=== PATIENT | female | born 1945 | race Caucasian/White ===

== ENCOUNTER 2020-10-05 21:51 | Inpatient (IN) ==
[2020-10-05] MEDS ORDERED: RAPID SEQUENCE INDUCTION BAG ONE (22:08)
[2020-10-05] MEDS ORDERED: ROCURONIUM BROMIDE 10 MG/ML 5 ML VIAL IV STA (22:09)
[2020-10-05] MEDS ORDERED: ETOMIDATE 2 MG/ML 20 ML VIAL IV ONE (22:09)
[2020-10-05] MEDS ORDERED: fentaNYL citrate 100 MCG/2 ML VIAL IV STA (22:25)
[2020-10-05 22:27] LABS: Base Excess VBG 5.1 mEq/L; Hematocrit (blood only) 32.5 % (37-47); Hemoglobin 10.8 g/dL (12.0-16.0); Mean Corpuscular Hemoglobin 31.1 pg (25-34); Mean Corpuscular Hgb Conc 33.2 g/dL (32-36); Mean Corpuscular Volume 93.7 fL (80-100); Mean Platelet Volume 10.3 fL (7.4-10.4); Oxygen Saturation VBG 60.7 %; Platelet Count 241 K/uL (130-400); RDW Coefficient of Variation 15.2 % (11.5-14.5); RDW Standard Deviation 52.6 fL (36.4-46.3); Red Blood Count 3.47 M/uL (4.2-5.4); White Blood Count 18.48 K/uL (4.8-10.8); pH VBG 7.38 (7.36-7.41)
[2020-10-05] MEDS ORDERED: MIDAZOLAM HCL 5 MG/ML 1 ML VIAL IV STA (22:30)
[2020-10-05] MEDS ORDERED: SODIUM CHLORIDE 0.9% 1000ML 1,000 ML IV SCH (22:30)
[2020-10-05] MEDS ORDERED: CEFEPIME 2,000 MG/20 ML VIAL IV STA (22:31)
[2020-10-05] MEDS ORDERED: metroNIDAZOLE 500 MG/100 ML BAG IV STA (22:31)
[2020-10-05 22:38] LABS: iSTAT Creatinine 1.9 mg/dl (0.6-1.3); iSTAT Hemoglobin 11.6 g/dl (12.0-16.0); iSTAT Ionized Calcium 1.09 mmol/l (1.12-1.32); iSTAT Potassium 4.4 mmol/L (3.3-5.0)
[2020-10-05] MEDS ORDERED: STAT IV Infusion **Titration per Protocol STA (22:43)
[2020-10-05] MEDS ORDERED: MIDAZOLAM HCL 125 MG/250 ML BAG IV PRN (22:43)
[2020-10-05] MEDS ORDERED: MIDAZOLAM BOLUS FROM BAG IV PRN (22:43)
[2020-10-05 22:45] LABS: Appearance Urine Cloudy (Clear); Bacteria Urine Automated Negative (Negative); Bilirubin Urine Negative (Negative); Blood Urine 2+ (Negative); Cast Urine Automated 0 /lpf (0-5); Color Urine Yellow; Epithelial Cell Urine Auto 0-5 /lpf (0-5); Glucose Urine UA 1+ (Negative); Ketones Urine Negative (Negative); Leukocyte Esterase Urine 3+ (Negative); Nitrite Urine Negative (Negative); Protein Urine 1+ (Negative); Specific Gravity Urine 1.016 (1.000-1.030); Urobilinogen Urine Negative (Negative); WBC Urine Automated >30 /hpf (0-5)
[2020-10-05] MEDS ORDERED: fentaNYL citrate 100 MCG/2 ML VIAL IV PRN (22:46)
[2020-10-05 22:48] LABS: Basophils # (auto) 0.02 K/uL (0-0.2); Basophils % (auto) 0.1 %; Eosinophils # (auto) 0.03 K/uL (0-0.5); Eosinophils % (auto) 0.2 %; Immature Granulocytes # (auto) 0.21 K/uL (0.00-0.02); Immature Granulocytes % (auto) 1.1 %; Lymphocytes # (auto) 1.01 K/uL (1.2-3.4); Lymphocytes % (auto) 5.5 %; Monocytes # (auto) 0.59 K/uL (0.11-0.59); Monocytes % (auto) 3.2 %; Neutrophils # (auto) 16.62 K/uL (1.4-6.5); Neutrophils % (auto) 89.9 %; Toxic Vacuolation 1+
--- NOTE | 2020-10-05 22:53 | Emergency Department Note ---
Impression & Plan Sepsis, Supranuclear palsy, Aspiration pneumonia, Acute renal failure, Acute UTI, Acute urinary retention, Hypoglycemia ED Provider Note NAME: JUDE CAMARILLO AGE: 75 SEX: F ARRIVES VIA: Ambulance INFORMANT: Patient, ED PROVIDER(S): Simone Santana MD CHIEF COMPLAINT: Sepsis, obtundation, hypoglycemia PLAN: Disposition: Admit MEDICAL DECISION MAKING: The patient is a 75-year-old woman with a past medical history of supra nuclear palsy bedbound at baseline and nonverbal, diabetes, hypertension, hyperlipidemia who presents to the emergency department via EMS after becoming more unresponsive over the past 48 hours in the setting of having fevers, cough congestion and "gurgling", in addition to noting that she had not urinated in 48 hours. The family report that the patient is full code at this time and they had never discussed goals of care should she become critically ill such as now. They report wanting to bring her to the hospital yesterday because of the bulging in her abdomen and not urinating but they describe that she had grabbed their hand indicating that she did not want to come to the hospital. However she worsened into today and was unresponsive and decision was made to call 911. EMS found the patient to be hypoglycemic in the 40s and hypotensive ultimately fluid responsive into the upper 90s/low 100s systolic. Her blood sugar did respond after repeat dosing with D10. However her mental status did not change and she would not follow commands and would only open eyes to pain and did not appear to be protecting her airway with audible gurgling noted. I did speak at length with the patient's daughter/additional siblings and who we gathered in the room describing that the patient was critically ill and to clarify goals of care if they were aware of any. Given that they had not discussed this previously we did agree to proceed with full treatment including intubation for airway protection. This was performed without difficulty per procedure note with good placement on follow-up chest x-ray. Etomidate was used for induction and rocuronium selected for paralysis given concern for acute renal failure and possible hyperkalemia. EKG demonstrated accelerated junctional rhythm without overt acute ischemia. Chest x-ray following intubation shows acceptable placement of ET and OG tubes and is suggestive of aspiration pneumonia per my preliminary review. WBC 18K consistent with concern for sepsis. H/H similar to prior. Platelets within normal limits. VBG unremarkable with pH of 7.38. Chemistry without metabolic acidosis. However creatinine 1.8 with BUN of 75 and BUN/creatinine> 40 suggestive of component of prerenal etiology. Lactate 1.3, within normal limits. LFTs without significant abnormality. Troponin 0.056 most likely related to demand in the setting of presumed sepsis. BNP 2900, nonspecific and in setting of the patient's acute renal failure. Procalcitonin 55 suggestive of sepsis. UA is consistent with infection with WBCs and 3+ leuk esterase. COVID-19 PCR was negative. Patient was treated empirically with broad-spectrum antibiotics with cefepime, Flagyl and vancomycin on arrival. Additional IV fluid hydration for sepsis was administered. Blood pressure was stable with systolic blood pressure 90s-100s. O2 saturation initially in mid 90s on 40% FiO2 however she did later develop desaturation which improved when sitting the patient up to 30 degrees and being provided with increased PEEP to 8 and FiO2 to 60%. ABG following these changes did show development of hypercapnia with PCO2 to 81 and pH of 7.1 and so respiratory rate was increased. Of note, repeat BSG was performed and patient had recurrence of hypoglycemia down to the 50s. She was provided with 1 amp of D50 with improvement in her blood sugar to the 150s. CT of the head, chest, abdomen pelvis were performed. Per preliminary [facility] report, negative for acute intracranial process. Sinus disease was noted. CT of the chest shows bilateral groundglass and nodular infiltrates which given the patient's history suspicious for aspiration pneumonia. CT done pelvis demonst rates stool-filled rectum and perirectal stranding raising possibility of stercoral proctitis. There is nephrolithiasis however no definite ureteral stone and while there is prominence of bilateral renal collecting systems this is likely related to patient's urinary retention. Case was discussed with Dr. Hardin, [facility] hospitalist, who will evaluate the patient for admission. Case also reviewed with Dariel Melgar, ICU PAC, who will assist in patient management in the ICU. Triage Nursing notes reviewed and agree them. Additional history obtained from EMS. Prior medical records reviewed Vital Signs: reviewed and remarkable for Hypotension. Differential diagnosis: Infection, hypoglycemia, electrolyte abnormalities, overdose, toxicologic, cardiac sources, intracerebral event, neurologic, trauma, as well as other pathologies. ER treatment provided: See below. Diagnostics interpreted by me: ECG: Accelerated junctional rhythm, 73 bpm, right bundle branch block, no overt ST elevation or depression, QTC 473, QRS 112. Cardiac Monitoring: An order for continuous cardiac monitoring was placed and demonstrated Accelerated junctional rhythm, 73 bpm, no ectopy. Laboratory studies: See below Imaging studies: CXR: Bilateral interstitial infiltrates suspicious for multifocal PNA per my preliminary review. ETT and OGT with acceptable placement. [facility] Preliminary Findings Only See Final Report For Complete Findings CT HEAD: No intracranial hemorrhage or acute cortical infarct. Involutional changes and white matter low attenuation. Sinus disease. CT CHEST Without Contrast: Bilateral groundglass and nodular infiltrates. Correlate clinically regarding inflammatory/infectious etiology. Consider followup imaging to resolution. Trace right pleural fluid and right lung base calcification. Heterogeneous thyroid. CT ABDOMEN & PELVIS Without Contrast: Limited study. Stool-filled rectum with perirectal stranding, raising possibility of stercoral proctitis. Nephrolithiasis. Prominence of the bilateral renal collecting systems. No definite ureteral stone is visualized, although the distal ureters are not well seen. Arnold catheter and air in a thickened decompressed bladder. Age-indeterminate compression deformities in the spine, likely remote. Additional incidental findings. Radiologist: Paige Campbell M.D. Study ready at 00:50 and initial results transmitted at 02:18 Consultation(s): Case was discussed with Dr. Hardin, [facility] [place] hospitalist, who will evaluate the patient for admission. HPI: The patient is a 75-year-old woman with a past medical history of supra nuclear palsy bedbound at baseline and nonverbal, diabetes, hypertension, hyperlipidemia who presents to the emergency department via EMS after becoming more unresponsive over the past 48 hours in the setting of having fevers, cough congestion and "gurgling", in addition to noting that she had not urinated in 48 hours. The family report that the patient is full code at this time and they had never discussed goals of care should she become critically ill such as now. They report wanting to bring her to the hospital yesterday because of the bulging in her abdomen and not urinating but they describe that she had grabbed their hand indicating that she did not want to come to the hospital. However she worsened into today and was unresponsive and decision was made to call 911. EMS found the patient to be hypoglycemic in the 40s and hypotensive ultimately fluid responsive into the upper 90s/low 100s systolic. Her blood sugar did respond after repeat dosing with D10. However her mental status did not change and she would not follow commands and would only open eyes to pain and did not appear to be protecting her airway with audible gurgling noted. I did speak at length with the patient's daughter/additional siblings and who we gathered in the room describing that the patient was critically ill and to clarify goals of care if they were aware of any. Given that they had not discussed this previously we did agree to proceed with full treatment including intubation for airway protection. This was performed without difficulty per procedure note with good placement on follow-up chest x-ray. Etomidate was used for induction and rocuronium selected for paralysis given concern for acute renal failure and possible hyperkalemia. ROS: See above HPI for pertinent positives & negatives. A total of 10 systems reviewed and were otherwise negative. PAST MEDICAL HISTORY:See Below PAST SURGICAL HISTORY:See Below FAMILY HISTORY:See Below SOCIAL HISTORY:See Below HOME MEDICATIONS:See Below ALLERGIES:See Below VITALS:See Below PHYSICAL EXAMINATION: GENERAL: Obtunded, Acute on chronically ill/toxic appearing. HENT: Normocephalic, atraumatic. Oropharynx dry, cracked mm. EYES: Normal conjunctiva. Sclera non-icteric. NECK: Supple. No nuchal rigidity. FROM. No JVD. RESPIRATORY: Scattered rales and rhonchi. CARDIAC: Tachycardic rate, normal rhythm. Extremities cool with delayed capillary refill. Pulses equal. ABDOMEN: Suprapubic distension with mild tenderness. PEG tube site c/d/i. No rebound or guarding. No masses. RECTAL: Deferred. MUSCULOSKELETAL: Chest examination reveals no tenderness. The back is symmetrical on inspection without obvious abnormality. There is no CVA tenderness to palpation. No joint edema. LOWER EXTREMITIES: Calves are equal size bilaterally and non-tender. No edema. No discoloration. NEURO: Opens eyes to pain. Does not follow commands. Gurgling from airway noted. SKIN: Minor sacral skin breakdown. No rash or jaundice noted. ED COURSE: Procedures: Endotracheal Intubation Indication: Obtundation. Airway protection. The patient was on 100% oxygen via NRB prior to the procedure. Suction, airway equipment, RSI drugs, respiratory equipment, and appropriate personnel were prepared prior to the initiation of the procedure. A time out was taken. Induction was performed with etomidate and paralysis with Rocuronium. After observing the clinical benefit of the medications, the airway was easily visualized utilizing a Mac 3 glidscope with Grade 1 view. A 8.0 size ETT tube was placed atraumatically to 22 cm using standard technique. The cuff inflated without signs of malfunction. There were bilateral breath sounds, positive col ormetric change, no gastric sounds, a good capnography waveform, and post procedure pulse oximetry was 100%. Post intubation sedation was administered using Versed gtt. PRN fentanyl ordered for pain. There were no complications. Critical Care: I have personally spent greater than 125 minutes of critical care time in the direct management of this patient. This includes bedside care, interpretation of diagnostic studies, and testing, discussion with consultants, patient, and family members, and other required patient management activities. This 125 minutes is in excess of all separately billable procedures. Simone Santana MD Past Med/Surg History Medical History Arthritis Depression Diabetes IDDM GERD (gastroesophageal reflux disease) History of frequent headaches Hx of bronchitis nebs were for this Hyperlipidemia Hypertension Impaired verbal communication pt non verbal Kidney stones On home oxygen therapy 3 lpm continuous PSP (progressive supranuclear palsy) dx 1979' > follows with Dr. Del Angel Stroke pt's daughter denies > just has the PSP Urinary incontinence Wheelchair bound Surgical History H/O: hysterectomy History of appendectomy History of cystoscopy History of tooth extraction Hx of breast biopsy DAUGHTER UNSURE WHICH SIDE S/P percutaneous endoscopic gastrostomy (PEG) tube placement PLACED 6 MOS AGO > FEEDINGS THROUGH THAT> SOME FLUID INTAKE PO> PT DAUGHTER UNSURE FACILITY IT WAS PLACED, THINKS [facility] Family History Mother Diabetes Hypertension Social History Smoking Status: Unknown if ever smoked Second Hand Exposure: No; Hx Alcohol Use: No Hx Substance Use: No Preferred Language: Syriac Communication Ability: Unable Airline Flight Attendant Required: No Beliefs That Will Affect Care: None marital status: Current Living Situation Comment: family current occupational status: retired How many Children do You have: 3 Other Information That Helps Us Care for You: No Feels Safe at Home: Yes Assistive Devices: Oxygen - Continuous Allergies Allergies Allergy/AdvReac Type Severity Reaction Status Date / Time Penicillins AdvReac Unknown Unknown Verified 10/05/20 22:34 Home Meds Home Medications Medication Instructions Recorded Confirmed amantadine HCl 100 mg PO BID 12/10/18 10/05/20 docusate sodium 100 mg PO HS 12/10/18 10/05/20 famotidine 20 mg PO BID 12/10/18 10/05/20 glycopyrrolate 2 mg PO BID 12/10/18 10/05/20 lorazepam [Ativan] 1 mg PO BID 12/10/18 10/05/20 metoprolol tartrate 50 mg PO HS 12/10/18 10/05/20 rosuvastatin 20 mg PO PM 12/10/18 10/05/20 sertraline 200 mg PO QAM 12/10/18 10/05/20 tizanidine 4 mg PO DIRECTED PRN 12/10/18 10/05/20 olanzapine 2.5 mg tablet 2.5 mg PO QPM 06/20/20 10/05/20 pseudoephedrine-guaifenesin ER 60 1 tab PO Q12H PRN 06/20/20 10/05/20 mg-600 mg tablet,extend release 12hr clindamycin HCl 300 mg PO TID 10/05/20 10/05/20 insulin glargine [Lantus U-100 0 unit SUBCUT UD 10/05/20 10/05/20 Insulin] oxycodone-acetaminophen 1 tab PO UD PRN 10/05/20 10/05/20 Results & Data (ED) Vital Signs Vital Signs - 24 hr 10/05/20 21:56 10/05/20 22:00 10/05/20 22:04 Temperature 36.7 C Temperature Source Rectal Pulse Rate 74 72 73 Pulse Rate from SpO2 Sensor 74 73 Respiratory Rate 33 H 31 H 26 H Respiratory Effort / Characteristics Labored Blood Pressure 125/57 L 125/57 L Blood Pressure Mean 79 79 Blood Pressure Position Lying Pulse Oximetry 100 99 99 Oxygen Delivery Method Non-rebreather Non-rebreather Non-rebreather Oxygen Flow Rate 15 15 16 Fraction of Inspired Oxygen Sepsis Recent Fever Within 48 Hours Yes Sepsis New/Unexplained Change in Mental Status No Sepsis Action Taken by Nursing No Action Required End-Tidal CO2 10/05/20 22:10 10/05/20 22:15 10/05/20 22:17 Temperature Temperature Source Pulse Rate 73 72 Pulse Rate from SpO2 Sensor 72 74 Respiratory Rate Respiratory Effort / Characteristics Blood Pressure 105/49 L Blood Pressure Mean 67 Blood Pressure Position Pulse Oximetry 100 100 100 Oxygen Delivery Method Non-rebreather Non-rebreather Oxygen Flow Rate 15 15 Fraction of Inspired Oxygen Sepsis Recent Fever Within 48 Hours Sepsis New/Unexplained Change in Mental Status Sepsis Action Taken by Nursing End-Tidal CO2 10/05/20 22:25 10/05/20 22:30 10/05/20 22:34 Temperature Temperature Source Pulse Rate 67 69 71 Pulse Rate from SpO2 Sensor 67 69 70 Respiratory Rate 16 Respiratory Effort / Characteristics Blood Pressure 94/50 L 135/58 L Blood Pressure Mean 64 83 Blood Pressure Position Pulse Oximetry 100 100 100 Oxygen Delivery Method Mechanical Vent Mechanical Vent Mechanical Vent Oxygen Flow Rate Fraction of Inspired Oxygen 40 Sepsis Recent Fever Within 48 Hours Sepsis New/Unexplained Change in Mental Status Sepsis Action Taken by Nursing End-Tidal CO2 40 41 44 10/05/20 22:45 10/05/20 22:49 10/05/20 23:00 Temperature Temperature Source Pulse Rate 67 67 68 Pulse Rate from SpO2 Sensor 68 67 69 Respiratory Rate Respiratory Effort / Characteristics Blood Pressure 85/43 L 94/45 L Blood Pressure Mean 57 61 Blood Pressure Position Pulse Oximetry 98 98 98 Oxygen Delivery Method Mechanical Vent Mechanical Vent Mechanical Vent Oxygen Flow Rate Fraction of Inspired Oxygen Sepsis Recent Fever Within 48 Hours Sepsis New/Unexplained Change in Mental Status Sepsis Action Taken by Nursing End-Tidal CO2 42 43 45 10/05/20 23:15 10/05/20 23:30 10/05/20 23:45 Temperature Temperature Source Pulse Rate 68 68 68 Pulse Rate from SpO2 Sensor 69 69 Respiratory Rate 16 Respiratory Effort / Characteristics Mechanically Ventilated Blood Pressure 95/46 L 89/45 L 133/54 L Blood Pressure Mean 62 59 80 Blood Pressure Position Pulse Oximetry 99 99 98 Oxygen Delivery Method Mechanical Vent Mechanical Vent Mechanical Vent Oxygen Flow Rate Fraction of Inspired Oxygen 40 Sepsis Recent Fever Within 48 Hours Sepsis New/Unexplained Change in Mental Status Sepsis Action Taken by Nursing End-Tidal CO2 45 43 46 10/06/20 00:00 10/06/20 00:35 10/06/20 00:37 Temperature Temperature Source Pulse Rate 72 73 73 Pulse Rate from SpO2 Sensor 73 Respiratory Rate 18 Respiratory Effort / Characteristics Blood Pressure 145/56 H 115/47 L Blood Pressure Mean 85 69 Blood Pressure Position Pulse Oximetry 96 98 Oxygen Delivery Method Mechanical Vent Oxygen Flow Rate Fraction of Inspired Oxygen 40 40 Sepsis Recent Fever Within 48 Hours Sepsis New/Unexplained Change in Mental Status Sepsis Action Taken by Nursing End-Tidal CO2 52 54 53 10/06/20 00:39 10/06/20 00:45 10/06/20 01:00 Temperature Temperature Source Pulse Rate 72 71 Pulse Rate from SpO2 Sensor 72 71 Respiratory Rate Respiratory Effort / Characteristics Mechanically Ventilated Blood Pressure 99/48 L 108/47 L Blood Pressure Mean 65 67 Blood Pressure Position Pulse Oximetry 96 98 95 Oxygen Delivery Method Mechanical Vent Mechanical Vent Mechanical Vent Oxygen Flow Rate Fraction of Inspired Oxygen 40 40 40 Sepsis Recent Fever Within 48 Hours Sepsis New/Unexplained Change in Mental Status Sepsis Action Taken by Nursing End-Tidal CO2 51 50 10/06/20 01:15 10/06/20 01:30 10/06/20 01:45 Temperature Temperature Source Pulse Rate 71 71 71 Pulse Rate from SpO2 Sensor 71 71 71 Respiratory Rate Respiratory Effort / Characteristics Blood Pressure 103/45 L 94/42 L 109/47 L Blood Pressure Mean 64 59 67 Blood Pressure Position Pulse Oximetry 94 93 93 Oxygen Delivery Method Mechanical Vent Mechanical Vent Mechanical Vent Oxygen Flow Rate Fraction of Inspired Oxygen 40 40 40 Sepsis Recent Fever Within 48 Hours Sepsis New/Unexplained Change in Mental Status Sepsis Action Taken by Nursing End-Tidal CO2 48 50 51 10/06/20 02:00 10/06/20 02:05 10/06/20 02:10 Temperature Temperature Source Pulse Rate 72 Pulse Rate from SpO2 Sensor 72 Respiratory Rate Respiratory Effort / Characteristics Mechanically Ventilated Blood Pressure 113/47 L Blood Pressure Mean 69 Blood Pressure Position Pulse Oximetry 87 L 92 Oxygen Delivery Method Mechanical Vent Mechanical Vent Oxygen Flow Rate Fraction of Inspired Oxygen 40 50 Sepsis Recent Fever Within 48 Hours Sepsis New/Unexplained Change in Mental Status Sepsis Action Taken by Nursing End-Tidal CO2 48 10/06/20 02:15 10/06/20 02:26 10/06/20 02:30 Temperature Temperature Source Pulse Rate 73 75 Pulse Rate from SpO2 Sensor 74 75 Respiratory Rate 24 Respiratory Effort / Characteristics Blood Pressure 104/50 L 96/51 L Blood Pressure Mean 68 66 Blood Pressure Position Pulse Oximetry 91 95 Oxygen Delivery Method Mechanical Vent Oxygen Flow Rate Fraction of Inspired Oxygen 50 50 Sepsis Recent Fever Within 48 Hours Sepsis New/Unexplained Change in Mental Status Sepsis Action Taken by Nursing End-Tidal CO2 43 36 10/06/20 02:45 10/06/20 03:00 10/06/20 03:15 Temperature Temperature Source Pulse Rate 76 75 76 Pulse Rate from SpO2 Sensor 76 75 74 Respiratory Rate Respiratory Effort / Characteristics Blood Pressure 99/53 L 100/52 L 99/51 L Blood Pressure Mean 68 68 67 Blood Pressure Position Pulse Oximetry 92 92 91 Oxygen Delivery Method Mechanical Vent Mechanical Vent Mechanical Vent Oxygen Flow Rate Fraction of Inspired Oxygen 50 50 50 Sepsis Recent Fever Within 48 Hours Sepsis New/Unexplained Change in Mental Status Sepsis Action Taken by Nursing End-Tidal CO2 41 36 37 10/06/20 03:30 10/06/20 03:35 10/06/20 03:45 Temperature Temperature Source Pulse Rate 75 74 Pulse Rate from SpO2 Sensor 75 74 Respiratory Rate Respiratory Effort / Characteristics Mechanically Ventilated Blood Pressure 101/49 L 95/52 L Blood Pressure Mean 66 66 Blood Pressure Position Pulse Oximetry 93 93 94 Oxygen Delivery Method Mechanical Vent Mechanical Vent Mechanical Vent Oxygen Flow Rate Fraction of Inspired Oxygen 50 50 50 Sepsis Recent Fever Within 48 Hours Sepsis New/Unexplained Change in Mental Status Sepsis Action Taken by Nursing End-Tidal CO2 34 32 10/06/20 04:00 10/06/20 04:15 10/06/20 05:10 Temperature Temperature Source Pulse Rate 74 73 70 Pulse Rate from SpO2 Sensor 74 73 Respiratory Rate 27 H Respiratory Effort / Characteristics Blood Pressure 93/51 L 87/54 L Blood Pressure Mean 65 65 Blood Pressure Position Pulse Oximetry 95 95 88 L Oxygen Delivery Method Mechanical Vent Mechanical Vent Oxygen Flow Rate Fraction of Inspired Oxygen 50 50 100 Sepsis Recent Fever Within 48 Hours Sepsis New/Unexplained Change in Mental Status Sepsis Action Taken by Nursing End-Tidal CO2 34 33 24 Laboratory Data Attestation: I reviewed the patient's lab results. Result diagrams: 10/05/20 22:19 10/05/20 22:19 Lab Results 10/05/20 10/05/20 10/05/20 Range/Units 22:03 22:16 22:16 WBC (4.8-10.8) K/uL RBC (4.2-5.4) M/uL Hgb (12.0-16.0) g/dL POC Hgb (12.0-16.0) g/dl Hct (37-47) % POC Hct (37-47) % MCV (80-100) fL MCH (25-34) pg MCHC (32-36) g/dL RDW Std Deviation (36.4-46.3) fL RDW Coeff of Arron (11.5-14.5) % Plt Count (130-400) K/uL MPV (7.4-10.4) fL Immature Gran % (Auto) % Neut % (Auto) % Lymph % (Auto) % Hayes % (Auto) % Eos % (Auto) % Baso % (Auto) % Neut # (Auto) (1.4-6.5) K/uL Lymph # (Auto) (1.2-3.4) K/uL Hayes # (Auto) (0.11-0.59) K/uL Eos # (Auto) (0-0.5) K/uL Baso # (Auto) (0-0.2) K/uL Immature Gran # (Auto) (0.00-0.02) K/uL Toxic Vacuolation PT INR APTT PTT Ratio POC pH (7.35-7.45) POC pCO2 (35-46) mmHg POC pO2 (80-95) mmHg POC HCO3 (19-24) lorie/L POC Base Excess (-9-1.8) lorie/L POC ABG O2 Sat (90-95) % VBG pH (7.36-7.41) VBG pCO2 (38-50) mmHg VBG pO2 mmHg VBG HCO3 mmol/L VBG O2 Saturation % VBG Base Excess mEq/L Barometric Pressure mm/Hg POC Sodium (135-144) mmol/L Sodium (136-145) mmol/L POC Potassium (3.3-5.0) mmol/L Potassium (3.5-5.1) mmol/L POC Chloride (101-112) mmol/L Chloride (98-107) mmol/L Carbon Dioxide (21-32) mmol/L POC Total CO2 (24-31) mmol/L Anion Gap (3-11) POC Anion Gap (16-25) mmol/L POC BUN (7-18) mg/dl BUN (7-18) mg/dl Creatinine (0.6-1.2) mg/dl POC Creatinine (0.6-1.3) mg/dl Est Cr Clr Drug Dosing ml/min Est GFR ( Amer) ml/min Est GFR (Non-Af Amer) ml/min BUN/Creatinine Ratio (10-20) Glucose (70-99) mg/dl POC Glucose 124 H (70-99) mg/dl POC Glucose (other) (70-99) mg/dl Lactate (0.4-2.0) mmol/L Calcium (8.5-10.1) mg/dl POC Ioniz Calcium Quyen (1.12-1.32) mmol/l Phosphorus (2.5-4.9) mg/dl Magnesium (1.8-2.4) mg/dl Total Bilirubin (0.2-1) mg/dl Direct Bilirubin (0-0.2) mg/dl AST (15-37) U/L ALT (12-78) U/L Alkaline Phosphatase (45-117) U/L Total Creatine Kinase (26-192) U/L Troponin I (0-0.045) ng/ml NT-Pro-B Natriuret Pep (0-900) pg/ml Total Protein (6.4-8.2) gm/dl Albumin (3.4-5.0) gm/dl Globulin (2.5-4.0) gm/dl Albumin/Globulin Ratio (0.9-2) Lipase (73-393) U/L Procalcitonin (0-0.5) ng/ml TSH (0.300-4.500) uIu/ml Free T4 (0.8-1.6) ng/dl Urine Color Urine Appearance (Clear) Urine pH (4.5-7.5) Ur Specific [place] (1.000-1.030) Urine Protein (Negative) Urine Glucose (UA) (Negative) Urine Ketones (Negative) Urine Blood (Negative) Urine Nitrite (Negative) Urine Bilirubin (Negative) Urine Urobilinogen (Negative) Ur Leukocyte Esterase (Negative) Urine WBC (Auto) (0-5) /hpf Urine RBC (Auto) (0-4) /hpf U Hyaline Cast (Auto) (0-5) /lpf U Epithel Cells (Auto) (0-5) /lpf Urine Bacteria (Auto) (Negative) Urine Yeast (None Prsent) COVID-19 Eval Order Covid19 at [facility] SARS-CoV-2 (PCR) NEGATIVE (Negative) 10/05/20 10/05/20 10/05/20 Range/Units 22:19 22:19 22:19 WBC 18.48 H (4.8-10.8) K/uL RBC 3.47 L (4.2-5.4) M/uL Hgb 10.8 L (12.0-16.0) g/dL POC Hgb (12.0-16.0) g/dl Hct 32.5 L (37-47) % POC Hct (37-47) % MCV 93.7 (80-100) fL MCH 31.1 (25-34) pg MCHC 33.2 (32-36) g/dL RDW Std Deviation 52.6 H (36.4-46.3) fL RDW Coeff of Arron 15.2 H (11.5-14.5) % Plt Count 241 (130-400) K/uL MPV 10.3 (7.4-10.4) fL Immature Gran % (Auto) 1.1 % Neut % (Auto) 89.9 % Lymph % (Auto) 5.5 % Hayes % (Auto) 3.2 % Eos % (Auto) 0.2 % Baso % (Auto) 0.1 % Neut # (Auto) 16.62 H (1.4-6.5) K/uL Lymph # (Auto) 1.01 L (1.2-3.4) K/uL Hayes # (Auto) 0.59 (0.11-0.59) K/uL Eos # (Auto) 0.03 (0-0.5) K/uL Baso # (Auto) 0.02 (0-0.2) K/uL Immature Gran # (Auto) 0.21 H (0.00-0.02) K/uL Toxic Vacuolation 1+ PT INR APTT PTT Ratio POC pH (7.35-7.45) POC pCO2 (35-46) mmHg POC pO2 (80-95) mmHg POC HCO3 (19-24) lorie/L POC Base Excess (-9-1.8) lorie/L POC ABG O2 Sat (90-95) % VBG pH (7.36-7.41) VBG pCO2 (38-50) mmHg VBG pO2 mmHg VBG HCO3 mmol/L VBG O2 Saturation % VBG Base Excess mEq/L Barometric Pressure mm/Hg POC Sodium (135-144) mmol/L Sodium 135 L (136-145) mmol/L POC Potassium (3.3-5.0) mmol/L Potassium 4.2 (3.5-5.1) mmol/L POC Chloride (101-112) mmol/L Chloride 100 (98-107) mmol/L Carbon Dioxide 34 H (21-32) mmol/L POC Total CO2 (24-31) mmol/L Anion Gap 2.0 L (3-11) POC Anion Gap (16-25) mmol/L POC BUN (7-18) mg/dl BUN 75 H (7-18) mg/dl Creatinine 1.82 H (0.6-1.2) mg/dl POC Creatinine (0.6-1.3) mg/dl Est Cr Clr Drug Dosing 22.4 ml/min Est GFR ( Amer) 30.9 ml/min Est GFR (Non-Af Amer) 26.7 ml/min BUN/Creatinine Ratio 41.2 H (10-20) Glucose 106 H (70-99) mg/dl POC Glucose (70-99) mg/dl POC Glucose (other) (70-99) mg/dl Lactate (0.4-2.0) mmol/L Calcium 8.7 (8.5-10.1) mg/dl POC Ioniz Calcium Quyen (1.12-1.32) mmol/l Phosphorus 1.9 L (2.5-4.9) mg/dl Magnesium 2.7 H (1.8-2.4) mg/dl Total Bilirubin 0.4 (0.2-1) mg/dl Direct Bilirubin 0.2 (0-0.2) mg/dl AST 42 H (15-37) U/L ALT 34 (12-78) U/L Alkaline Phosphatase 77 (45-117) U/L Total Creatine Kinase 236 H (26-192) U/L Troponin I 0.056 H* (0-0.045) ng/ml NT-Pro-B Natriuret Pep 2902 H (0-900) pg/ml Total Protein 7.0 (6.4-8.2) gm/dl Albumin 2.5 L (3.4-5.0) gm/dl Globulin 4.5 H (2.5-4.0) gm/dl Albumin/Globulin Ratio 0.6 L (0.9-2) Lipase 51 L (73-393) U/L Procalcitonin 55.17 H (0-0.5) ng/ml TSH 5.310 H (0.300-4.500) uIu/ml Free T4 1.15 (0.8-1.6) ng/dl Urine Color Urine Appearance (Clear) Urine pH (4.5-7.5) Ur Specific [place] (1.000-1.030) Urine Protein (Negative) Urine Glucose (UA) (Negative) Urine Ketones (Negative) Urine Blood (Negative) Urine Nitrite (Negative) Urine Bilirubin (Negative) Urine Urobilinogen (Negative) Ur Leukocyte Esterase (Negative) Urine WBC (Auto) (0-5) /hpf Urine RBC (Auto) (0-4) /hpf U Hyaline Cast (Auto) (0-5) /lpf U Epithel Cells (Auto) (0-5) /lpf Urine Bacteria (Auto) (Negative) Urine Yeast (None Prsent) COVID-19 Eval Order SARS-CoV-2 (PCR) (Negative) 10/05/20 10/05/20 10/05/20 Range/Units 22:19 22:19 22:26 WBC (4.8-10.8) K/uL RBC (4.2-5.4) M/uL Hgb (12.0-16.0) g/dL POC Hgb 11.6 L (12.0-16.0) g/dl Hct (37-47) % POC Hct 34 L (37-47) % MCV (80-100) fL MCH (25-34) pg MCHC (32-36) g/dL RDW Std Deviation (36.4-46.3) fL RDW Coeff of Arron (11.5-14.5) % Plt Count (130-400) K/uL MPV (7.4-10.4) fL Immature Gran % (Auto) % Neut % (Auto) % Lymph % (Auto) % Hayes % (Auto) % Eos % (Auto) % Baso % (Auto) % Neut # (Auto) (1.4-6.5) K/uL Lymph # (Auto) (1.2-3.4) K/uL Hayes # (Auto) (0.11-0.59) K/uL Eos # (Auto) (0-0.5) K/uL Baso # (Auto) (0-0.2) K/uL Immature Gran # (Auto) (0.00-0.02) K/uL Toxic Vacuolation PT Cancelled INR Cancelled APTT Cancelled PTT Ratio Cancelled POC pH (7.35-7.45) POC pCO2 (35-46) mmHg POC pO2 (80-95) mmHg POC HCO3 (19-24) lorie/L POC Base Excess (-9-1.8) lorie/L POC ABG O2 Sat (90-95) % VBG pH 7.38 (7.36-7.41) VBG pCO2 55 H (38-50) mmHg VBG pO2 32 mmHg VBG HCO3 31 mmol/L VBG O2 Saturation 60.7 % VBG Base Excess 5.1 mEq/L Barometric Pressure 735.7 mm/Hg POC Sodium 137 (135-144) mmol/L Sodium (136-145) mmol/L POC Potassium 4.4 (3.3-5.0) mmol/L Potassium (3.5-5.1) mmol/L POC Chloride 95 L (101-112) mmol/L Chloride (98-107) mmol/L Carbon Dioxide (21-32) mmol/L POC Total CO2 31 (24-31) mmol/L Anion Gap (3-11) POC Anion Gap 17.0 (16-25) mmol/L POC BUN 78 H (7-18) mg/dl BUN (7-18) mg/dl Creatinine (0.6-1.2) mg/dl POC Creatinine 1.9 H (0.6-1.3) mg/dl Est Cr Clr Drug Dosing ml/min Est GFR ( Amer) ml/min Est GFR (Non-Af Amer) ml/min BUN/Creatinine Ratio (10-20) Glucose (70-99) mg/dl POC Glucose (70-99) mg/dl POC Glucose (other) 106 H (70-99) mg/dl Lactate (0.4-2.0) mmol/L Calcium (8.5-10.1) mg/dl POC Ioniz Calcium Quyen 1.09 L (1.12-1.32) mmol/l Phosphorus (2.5-4.9) mg/dl Magnesium (1.8-2.4) mg/dl Total Bilirubin (0.2-1) mg/dl Direct Bilirubin (0-0.2) mg/dl AST (15-37) U/L ALT (12-78) U/L Alkaline Phosphatase (45-117) U/L Total Creatine Kinase (26-192) U/L Troponin I (0-0.045) ng/ml NT-Pro-B Natriuret Pep (0-900) pg/ml Total Protein (6.4-8.2) gm/dl Albumin (3.4-5.0) gm/dl Globulin (2.5-4.0) gm/dl Albumin/Globulin Ratio (0.9-2) Lipase (73-393) U/L Procalcitonin (0-0.5) ng/ml TSH (0.300-4.500) uIu/ml Free T4 (0.8-1.6) ng/dl Urine Color Urine Appearance (Clear) Urine pH (4.5-7.5) Ur Specific [place] (1.000-1.030) Urine Protein (Negative) Urine Glucose (UA) (Negative) Urine Ketones (Negative) Urine Blood (Negative) Urine Nitrite (Negative) Urine Bilirubin (Negative) Urine Urobilinogen (Negative) Ur Leukocyte Esterase (Negative) Urine WBC (Auto) (0-5) /hpf Urine RBC (Auto) (0-4) /hpf U Hyaline Cast (Auto) (0-5) /lpf U Epithel Cells (Auto) (0-5) /lpf Urine Bacteria (Auto) (Negative) Urine Yeast (None Prsent) COVID-19 Eval Order SARS-CoV-2 (PCR) (Negative) 10/05/20 10/05/20 10/05/20 Range/Units 22:35 22:47 22:50 WBC (4.8-10.8) K/uL RBC (4.2-5.4) M/uL Hgb (12.0-16.0) g/dL POC Hgb (12.0-16.0) g/dl Hct (37-47) % POC Hct (37-47) % MCV (80-100) fL MCH (25-34) pg MCHC (32-36) g/dL RDW Std Deviation (36.4-46.3) fL RDW Coeff of Arron (11.5-14.5) % Plt Count (130-400) K/uL MPV (7.4-10.4) fL Immature Gran % (Auto) % Neut % (Auto) % Lymph % (Auto) % Hayes % (Auto) % Eos % (Auto) % Baso % (Auto) % Neut # (Auto) (1.4-6.5) K/uL Lymph # (Auto) (1.2-3.4) K/uL Hayes # (Auto) (0.11-0.59) K/uL Eos # (Auto) (0-0.5) K/uL Baso # (Auto) (0-0.2) K/uL Immature Gran # (Auto) (0.00-0.02) K/uL Toxic Vacuolation PT 11.9 INR 1.2 H APTT 24.9 PTT Ratio 0.9 POC pH (7.35-7.45) POC pCO2 (35-46) mmHg POC pO2 (80-95) mmHg POC HCO3 (19-24) lorie/L POC Base Excess (-9-1.8) lorie/L POC ABG O2 Sat (90-95) % VBG pH (7.36-7.41) VBG pCO2 (38-50) mmHg VBG pO2 mmHg VBG HCO3 mmol/L VBG O2 Saturation % VBG Base Excess mEq/L Barometric Pressure mm/Hg POC Sodium (135-144) mmol/L Sodium (136-145) mmol/L POC Potassium (3.3-5.0) mmol/L Potassium (3.5-5.1) mmol/L POC Chloride (101-112) mmol/L Chloride (98-107) mmol/L Carbon Dioxide (21-32) mmol/L POC Total CO2 (24-31) mmol/L Anion Gap (3-11) POC Anion Gap (16-25) mmol/L POC BUN (7-18) mg/dl BUN (7-18) mg/dl Creatinine (0.6-1.2) mg/dl POC Creatinine (0.6-1.3) mg/dl Est Cr Clr Drug Dosing ml/min Est GFR ( Amer) ml/min Est GFR (Non-Af Amer) ml/min BUN/Creatinine Ratio (10-20) Glucose (70-99) mg/dl POC Glucose (70-99) mg/dl POC Glucose (other) (70-99) mg/dl Lactate 1.3 (0.4-2.0) mmol/L Calcium (8.5-10.1) mg/dl POC Ioniz Calcium Quyen (1.12-1.32) mmol/l Phosphorus (2.5-4.9) mg/dl Magnesium (1.8-2.4) mg/dl Total Bilirubin (0.2-1) mg/dl Direct Bilirubin (0-0.2) mg/dl AST (15-37) U/L ALT (12-78) U/L Alkaline Phosphatase (45-117) U/L Total Creatine Kinase (26-192) U/L Troponin I (0-0.045) ng/ml NT-Pro-B Natriuret Pep (0-900) pg/ml Total Protein (6.4-8.2) gm/dl Albumin (3.4-5.0) gm/dl Globulin (2.5-4.0) gm/dl Albumin/Globulin Ratio (0.9-2) Lipase (73-393) U/L Procalcitonin (0-0.5) ng/ml TSH (0.300-4.500) uIu/ml Free T4 (0.8-1.6) ng/dl Urine Color Yellow Urine Appearance Cloudy A (Clear) Urine pH 6.0 (4.5-7.5) Ur Specific [place] 1.016 (1.000-1.030) Urine Protein 1+ H (Negative) Urine Glucose (UA) 1+ H (Negative) Urine Ketones Negative (Negative) Urine Blood 2+ H (Negative) Urine Nitrite Negative (Negative) Urine Bilirubin Negative (Negative) Urine Urobilinogen Negative (Negative) Ur Leukocyte Esterase 3+ H (Negative) Urine WBC (Auto) >30 H (0-5) /hpf Urine RBC (Auto) 10-30 H (0-4) /hpf U Hyaline Cast (Auto) 0 (0-5) /lpf U Epithel Cells (Auto) 0-5 (0-5) /lpf Urine Bacteria (Auto) Negative (Negative) Urine Yeast Budding A (None Prsent) COVID-19 Eval Order SARS-CoV-2 (PCR) (Negative) 10/06/20 10/06/20 10/06/20 Range/Units 01:21 01:23 02:01 WBC (4.8-10.8) K/uL RBC (4.2-5.4) M/uL Hgb (12.0-16.0) g/dL POC Hgb (12.0-16.0) g/dl Hct (37-47) % POC Hct (37-47) % MCV (80-100) fL MCH (25-34) pg MCHC (32-36) g/dL RDW Std Deviation (36.4-46.3) fL RDW Coeff of Arron (11.5-14.5) % Plt Count (130-400) K/uL MPV (7.4-10.4) fL Immature Gran % (Auto) % Neut % (Auto) % Lymph % (Auto) % [place] % (Auto) % Eos % (Auto) % Baso % (Auto) % Neut # (Auto) (1.4-6.5) K/uL Lymph # (Auto) (1.2-3.4) K/uL [place] # (Auto) (0.11-0.59) K/uL Eos # (Auto) (0-0.5) K/uL Baso # (Auto) (0-0.2) K/uL Immature Gran # (Auto) (0.00-0.02) K/uL Toxic Vacuolation PT INR APTT PTT Ratio POC pH (7.35-7.45) POC pCO2 (35-46) mmHg POC pO2 (80-95) mmHg POC HCO3 (19-24) lorie/L POC Base Excess (-9-1.8) lorie/L POC ABG O2 Sat (90-95) % VBG pH (7.36-7.41) VBG pCO2 (38-50) mmHg VBG pO2 mmHg VBG HCO3 mmol/L VBG O2 Saturation % VBG Base Excess mEq/L Barometric Pressure mm/Hg POC Sodium (135-144) mmol/L Sodium (136-145) mmol/L POC Potassium (3.3-5.0) mmol/L Potassium (3.5-5.1) mmol/L POC Chloride (101-112) mmol/L Chloride (98-107) mmol/L Carbon Dioxide (21-32) mmol/L POC Total CO2 (24-31) mmol/L Anion Gap (3-11) POC Anion Gap (16-25) mmol/L POC BUN (7-18) mg/dl BUN (7-18) mg/dl Creatinine (0.6-1.2) mg/dl POC Creatinine (0.6-1.3) mg/dl Est Cr Clr Drug Dosing ml/min Est GFR ( Amer) ml/min Est GFR (Non-Af Amer) ml/min BUN/Creatinine Ratio (10-20) Glucose (70-99) mg/dl POC Glucose 65 L* 55 L* 151 H (70-99) mg/dl POC Glucose (other) (70-99) mg/dl Lactate (0.4-2.0) mmol/L Calcium (8.5-10.1) mg/dl POC Ioniz Calcium Quyen (1.12-1.32) mmol/l Phosphorus (2.5-4.9) mg/dl Magnesium (1.8-2.4) mg/dl Total Bilirubin (0.2-1) mg/dl Direct Bilirubin (0-0.2) mg/dl AST (15-37) U/L ALT (12-78) U/L Alkaline Phosphatase (45-117) U/L Total Creatine Kinase (26-192) U/L Troponin I (0-0.045) ng/ml NT-Pro-B Natriuret Pep (0-900) pg/ml Total Protein (6.4-8.2) gm/dl Albumin (3.4-5.0) gm/dl Globulin (2.5-4.0) gm/dl Albumin/Globulin Ratio (0.9-2) Lipase (73-393) U/L Procalcitonin (0-0.5) ng/ml TSH (0.300-4.500) uIu/ml Free T4 (0.8-1.6) ng/dl Urine Color Urine Appearance (Clear) Urine pH (4.5-7.5) Ur Specific [place] (1.000-1.030) Urine Protein (Negative) Urine Glucose (UA) (Negative) Urine Ketones (Negative) Urine Blood (Negative) Urine Nitrite (Negative) Urine Bilirubin (Negative) Urine Urobilinogen (Negative) Ur Leukocyte Esterase (Negative) Urine WBC (Auto) (0-5) /hpf Urine RBC (Auto) (0-4) /hpf U Hyaline Cast (Auto) (0-5) /lpf U Epithel Cells (Auto) (0-5) /lpf Urine Bacteria (Auto) (Negative) Urine Yeast (None Prsent) COVID-19 Eval Order SARS-CoV-2 (PCR) (Negative) 10/06/20 10/06/20 Range/Units 02:19 03:32 WBC (4.8-10.8) K/uL RBC (4.2-5.4) M/uL Hgb (12.0-16.0) g/dL POC Hgb 10.2 L (12.0-16.0) g/dl Hct (37-47) % POC Hct 30 L (37-47) % MCV (80-100) fL MCH (25-34) pg MCHC (32-36) g/dL RDW Std Deviation (36.4-46.3) fL RDW Coeff of Arron (11.5-14.5) % Plt Count (130-400) K/uL MPV (7.4-10.4) fL Immature Gran % (Auto) % Neut % (Auto) % Lymph % (Auto) % [place] % (Auto) % Eos % (Auto) % Baso % (Auto) % Neut # (Auto) (1.4-6.5) K/uL Lymph # (Auto) (1.2-3.4) K/uL [place] # (Auto) (0.11-0.59) K/uL Eos # (Auto) (0-0.5) K/uL Baso # (Auto) (0-0.2) K/uL Immature Gran # (Auto) (0.00-0.02) K/uL Toxic Vacuolation PT INR APTT PTT Ratio POC pH 7.17 L* (7.35-7.45) POC pCO2 81 H (35-46) mmHg POC pO2 69 L (80-95) mmHg POC HCO3 29 H (19-24) lorie/L POC Base Excess 1.0 (-9-1.8) lorie/L POC ABG O2 Sat 87.0 L (90-95) % VBG pH (7.36-7.41) VBG pCO2 (38-50) mmHg VBG pO2 mmHg VBG HCO3 mmol/L VBG O2 Saturation % VBG Base Excess mEq/L Barometric Pressure mm/Hg POC Sodium 142 (135-144) mmol/L Sodium (136-145) mmol/L POC Potassium 4.0 (3.3-5.0) mmol/L Potassium (3.5-5.1) mmol/L POC Chloride (101-112) mmol/L Chloride (98-107) mmol/L Carbon Dioxide (21-32) mmol/L POC Total CO2 32 H (24-31) mmol/L Anion Gap (3-11) POC Anion Gap (16-25) mmol/L POC BUN (7-18) mg/dl BUN (7-18) mg/dl Creatinine (0.6-1.2) mg/dl POC Creatinine (0.6-1.3) mg/dl Est Cr Clr Drug Dosing ml/min Est GFR ( Amer) ml/min Est GFR (Non-Af Amer) ml/min BUN/Creatinine Ratio (10-20) Glucose (70-99) mg/dl POC Glucose 120 H (70-99) mg/dl POC Glucose (other) (70-99) mg/dl Lactate (0.4-2.0) mmol/L Calcium (8.5-10.1) mg/dl POC Ioniz Calcium Quyen (1.12-1.32) mmol/l Phosphorus (2.5-4.9) mg/dl Magnesium (1.8-2.4) mg/dl Total Bilirubin (0.2-1) mg/dl Direct Bilirubin (0-0.2) mg/dl AST (15-37) U/L ALT (12-78) U/L Alkaline Phosphatase (45-117) U/L Total Creatine Kinase (26-192) U/L Troponin I (0-0.045) ng/ml NT-Pro-B Natriuret Pep (0-900) pg/ml Total Protein (6.4-8.2) gm/dl Albumin (3.4-5.0) gm/dl Globulin (2.5-4.0) gm/dl Albumin/Globulin Ratio (0.9-2) Lipase (73-393) U/L Procalcitonin (0-0.5) ng/ml TSH (0.300-4.500) uIu/ml Free T4 (0.8-1.6) ng/dl Urine Color Urine Appearance (Clear) Urine pH (4.5-7.5) Ur Specific [place] (1.000-1.030) Urine Protein (Negative) Urine Glucose (UA) (Negative) Urine Ketones (Negative) Urine Blood (Negative) Urine Nitrite (Negative) Urine Bilirubin (Negative) Urine Urobilinogen (Negative) Ur Leukocyte Esterase (Negative) Urine WBC (Auto) (0-5) /hpf Urine RBC (Auto) (0-4) /hpf U Hyaline Cast (Auto) (0-5) /lpf U Epithel Cells (Auto) (0-5) /lpf Urine Bacteria (Auto) (Negative) Urine Yeast (None Prsent) COVID-19 Eval Order SARS-CoV-2 (PCR) (Negative) Administered Medications Midazolam HCl (Versed) 125 mg in 250 mls @ 2 mls/hr IV .Q96H PRN; Protocol PRN Reason: Sedation Stop: 11/04/20 22:42 Last Titration: 10/06/20 03:48 Dose: 2 mg/hr, 4 mls/hr Documented by: [id number] Cosigned by: [id number] Titration: 10/06/20 03:04 Dose: 1.5 mg/hr, 3 mls/hr Documented by: [id number] Cosigned by: [id number] Admin: 10/05/20 23:28 Dose: 1 mg/hr, 2 mls/hr Documented by: [id number] Cosigned by: [id number] Discontinued Medications Dextrose (Dextrose 50% 50 Ml Syringe) Confirm Administered Dose 50 ml IV .STK- MED ONE Stop: 10/06/20 01:27 Last Admin: 10/06/20 01:32 Dose: Not Given Documented by: [id number] Dextrose (Dextrose 50% 50 Ml Syringe) 50 ml IV NOW ONE Stop: 10/06/20 01:28 Last Admin: 10/06/20 01:31 Dose: 50 ml Documented by: [id number] Etomidate (Etomidate 2 Mg/Ml 20 Ml Vial) 15 mg IV NOW ONE Stop: 10/05/20 22:10 Last Admin: 10/05/20 23:39 Dose: Not Given Documented by: [id number] Fentanyl Citrate (Fentanyl Citrate 100 Mcg/2 Ml Vial) 50 mcg IV NOW STA Stop: 10/05/20 22:26 Last Admin: 10/05/20 23:39 Dose: Not Given Documented by: [id number] Sodium Chloride (Nss 1000ml) 1,000 mls @ 999 mls/hr IV .Q1H1M DEBORAH Stop: 10/05/20 23:26 Last Infusion: 10/06/20 00:28 Dose: 0 mls/hr Documented by: [id number] Admin: 10/05/20 23:28 Dose: 999 mls/hr Documented by: [id number] Sodium Chloride (Nss 1000ml) 800 mls @ 999 mls/hr IV .Q49M [facility] [place] Stop: 10/06/20 00:14 Last Infusion: 10/06/20 00:17 Dose: 0 mls/hr Documented by: [id number] Admin: 10/05/20 23:28 Dose: 999 mls/hr Documented by: [id number] Cefepime HCl (Maxipime) 2,000 mg in 20 mls @ 5 mls/min IV NOW STA; Protocol Stop: 10/05/20 22:34 Last Admin: 10/05/20 23:27 Dose: 5 mls/min Documented by: [id number] Metronidazole (Flagyl) 500 mg in 100 mls @ 100 mls/hr IV NOW STA Stop: 10/05/20 23:30 Last Infusion: 10/06/20 00:28 Dose: 0 mls/hr Documented by: [id number] Admin: 10/05/20 23:28 Dose: 100 mls/hr Documented by: [id number] Vancomycin HCl 1,500 mg/ (Sodium Chloride) 530 mls @ 200 mls/hr IV NOW ONE Stop: 10/06/20 02:17 Last Infusion: 10/06/20 03:33 Dose: 0 mls/hr Documented by: [id number] Admin: 10/06/20 00:44 Dose: 200 mls/hr Documented by: [id number] Midazolam HCl (Midazolam Hcl 5 Mg/Ml 1 Ml Vial) 2 mg IV NOW STA Stop: 10/05/20 22:31 Last Admin: 10/05/20 23:39 Dose: Not Given Documented by: [id number] Miscellaneous (Rapid Sequence Induction Bag) Confirm Administered Dose 1 ea .ROUTE .STK-MED ONE Stop: 10/05/20 22:09 Last Admin: 10/06/20 01:32 Dose: Not Given Documented by: [id number] Rocuronium [place] (Rocuronium [place] 10 Mg/Ml 5 Ml Vial) 55 mg IV ONCE STA Stop: 10/05/20 22:10 Last Admin: 10/05/20 23:39 Dose: Not Given Documented by: [id number] Discharge Plan Visit Data Chief Complaint: Hypoglycemia Stated Complaint: UNRESPONSIVE/HYPOGLYCEMIA ED Provider: Simone Santana Discharge Problem: Sepsis, Supranuclear palsy, Aspiration pneumonia, Acute renal failure, Acute UTI, Acute urinary retention, Hypoglycemia Discharge Instructions Interventions: ED Discharge Assessment Last Done: 10/06/20 04:24 Forms Stand Alone Forms: [facility] naaptol Prescriptions Prescriptions: No Action olanzapine [Zyprexa] 2.5 mg tablet 2.5 mg PO QPM RF: 0 pseudoephedrine-guaifenesin [Mucinex D] 60-600 mg tablet extended release 12 hr 1 tab PO Q12H PRN (Reason: Cough) RF: 0 sertraline 100 mg Tablet 200 mg PO QAM RF: 0 rosuvastatin 20 mg Tablet 20 mg PO PM RF: 0 famotidine 20 mg Tablet 20 mg PO BID RF: 0 glycopyrrolate 2 mg Tablet 2 mg PO BID RF: 0 amantadine HCl 100 mg Tablet 100 mg PO BID RF: 0 lorazepam [Ativan] 1 mg Tablet 1 mg PO BID RF: 0 docusate sodium 100 mg Tablet 100 mg PO HS RF: 0 metoprolol tartrate 50 mg Tablet 50 mg PO HS RF: 0 tizanidine 4 mg Tablet 4 mg PO DIRECTED PRN (Reason: Spasms) RF: 0 clindamycin HCl 300 mg capsule 300 mg PO TID RF: 0 oxycodone-acetaminophen 10-325 mg tablet 1 tab PO UD PRN (Reason: Pain) RF: 0 Lantus U-100 Insulin 100 unit/mL Solution 0 unit SUBCUT UD RF: 0 Referrals Referrals: Jeniffer Del Angel DO [Primary Care Provider] - Discharge Problem: Sepsis Qualifiers: Sepsis type: sepsis due to unspecified organism Sepsis acute organ dysfunction status: with acute organ dysfunction Severe sepsis acute organ dysfunction type: acute respiratory failure Acute respiratory failure type: with hypoxia Severe sepsis shock status: unspecified Qualified Code(s): A41.9 - Sepsis, unspecified organism Aspiration pneumonia Qualifiers: Aspiration pneumonia type: unspecified Laterality: bilateral Lung location: low er lobe of lung Qualified Code(s): J69.0 - Pneumonitis due to inhalation of food and vomit Acute renal failure Qualifiers: Acute renal failure type: unspecified Qualified Code(s): N17.9 - Acute kidney failure, unspecified
[2020-10-05 23:10] LABS: INR 1.2 (0.9-1.1); Partial Thromboplastin Ratio 0.9; Partial Thromboplastin Time 24.9 Seconds (21.0-31.0); Prothrombin Time 11.9 Seconds (9.0-12.0)
[2020-10-05 23:12] LABS: Albumin Globulin Ratio 0.6 (0.9-2); Albumin Level 2.5 gm/dl (3.4-5.0); BUN Creatinine Ratio 41.2 (10-20); Bilirubin,Total 0.4 mg/dl (0.2-1); Calcium 8.7 mg/dl (8.5-10.1); Creatinine Clr Calc Pharmacy 22.4 ml/min; Est GFR (African American) 30.9 ml/min; Est GFR (Non-African American) 26.7 ml/min; Globulin 4.5 gm/dl (2.5-4.0); Phosphorus 1.9 mg/dl (2.5-4.9); Thyroid Stimulating Hormone 5.31 uIu/ml (0.300-4.500); Troponin I 0.056 ng/ml (0-0.045)
[2020-10-05] MEDS ORDERED: SODIUM CHLORIDE 0.9% 1000ML 800 ML IV SCH (23:26)
[2020-10-05 23:32] LABS: Bilirubin Direct 0.2 mg/dl (0-0.2); Magnesium 2.7 mg/dl (1.8-2.4); Potassium 4.2 mmol/L (3.5-5.1); T4 Free Thyroxine 1.15 ng/dl (0.8-1.6)
[2020-10-05] MEDS ORDERED: VANCOMYCIN CONSULT ACTIVE PRN (23:39)
[2020-10-05] MEDS ORDERED: VANCOMYCIN HCL 1,500 MG in SODIUM CHLORIDE 0.9% 500 ML IV ONE (23:39)
[2020-10-06] MEDS ORDERED: DEXTROSE 50% 50 ML SYRINGE IV ONE ×2 (01:26→01:27)
[2020-10-06 02:46] LABS: iSTAT Arterial Blood Gas HCO3 29 meg/L (19-24); iSTAT Arterial Blood Gas pCO2 81 mmHg (35-46); iSTAT Arterial Blood Gas pH 7.17 (7.35-7.45); iSTAT Arterial Blood Gas pO2 69 mmHg (80-95); iSTAT Carbon Dioxide 32 mmol/L (24-31); iSTAT Hematocrit 30 % (37-47); iSTAT Hemoglobin 10.2 g/dl (12.0-16.0); iSTAT Sodium 142 mmol/L (135-144)
--- NOTE | 2020-10-06 04:16 | History & Physical Report ---
Date of Service October 06, 2020 Assessment & Plan (1) Comfort measures only status: Patient is a complex 75 year old female with PMHx progressive supranuclear palsy (diagnosed at age 38), Depression, HLD, HTN, who presented by EMS due to concerns of continued decline over the past 2 days with decreased PO intake, anuria, constipation, and hypoglycemia BSG 46 when EMS arrived. Comfort Measures -Patient with continued worsening status per family for almost 1 year now, acutely worsening the past week -Discussed aspiration pneumonia and suspected stercoral proctitis in addition to patient's over all condition -Patient at this time electing not to escalate care and would want to discontinue any medications/procedures outside of making the patient comfortable -They are waiting for a few more family members to come to the hospital to see the patient before planned terminal extubation -This was discussed in length with the family for ~40+ minutes -Discussed with the ICU provider monotyper for transfer to ICU with expectation of terminal extubation once the remaining family members arrived -Discontinue abx -Continue with versed gtt for sedation -Fentanyl pushes PRN while sedated -Morphine 2mg q2h PRN pain and air hunger once extubated Dispo: ICU for transition to LOSS PREVENTION COORDINATOR and planned terminal extubation once family arrives FEN: Feeds for comfort DVT: n/A Code: DNR/DNI COMFORT MEASURES ONLY History of Present Illness Chief Complaint: AMS Primary Care Provider: Jeniffer Del Angel DO Patient is a complex 75 year old female with PMHx progressive supranuclear palsy (diagnosed at age 38), Depression, HLD, HTN, who presented by EMS due to concerns of continued decline over the past 2 days with decreased PO intake, anuria, constipation, and hypoglycemia BSG 46 when EMS arrived. Patient at baseline is non-verbal, communicating with hand signals, and has been communicating minimally the past few days. History is gathered from family who are present in the room. Family notes that the patient has been having an over all decline the past year, but that it has acutely worsened this past week, especially the past 2 days. Patient had become more minimally responsive than usual and had not urinated in over 2 days. She had also not had a bowel movement in over a week and family has been hearing "gurgling" noises from the patient. She takes very minimally in by PO at baseline (usually coffee) and has strictly been fed via her PEG tube by family. Most recent feeding was 3PM on day of presentation. In the ED there were concerns that the patient was minimally responsive and unable to protect her airway. Discussion was held with the family by the ED provider in regards to patient's end of life wishes and at that time they noted that it had never been discussed and that they agreed to intubation at that time. Upon my evaluation of the patient, patient is intubated and sedated. Discussion was held with family in regards to long-term goals for the patient (~40+ minutes). Family states that as noted above she had been declining for some time now. They felt that this was her time and that they would want to make her as comfortable as possible. They noted that at this point in time they would not want any escalation of care. They also would not want chest compressions or reintubation. They would like a few remaining family members to be able to see the patient before she was ultimately extubated with the expectation of a terminal extubation. Allergies Allergy/AdvReac Type Severity Reaction Status Date / Time Penicillins AdvReac Unknown Unknown Verified 10/05/20 22:34 Home Medications Medication Instructions Recorded Confirmed Type amantadine HCl 100 mg PO BID 12/10/18 10/05/20 History docusate sodium 100 mg PO HS 12/10/18 10/05/20 History famotidine 20 mg PO BID 12/10/18 10/05/20 History glycopyrrolate 2 mg PO BID 12/10/18 10/05/20 History lorazepam [Ativan] 1 mg PO BID 12/10/18 10/05/20 History metoprolol tartrate 50 mg PO HS 12/10/18 10/05/20 History rosuvastatin 20 mg PO PM 12/10/18 10/05/20 History sertraline 200 mg PO QAM 12/10/18 10/05/20 History tizanidine 4 mg PO DIRECTED PRN 12/10/18 10/05/20 History olanzapine 2.5 mg tablet 2.5 mg PO QPM 06/20/20 10/05/20 History pseudoephedrine-guaifenesin ER 60 1 tab PO Q12H PRN 06/20/20 10/05/20 History mg-600 mg tablet,extend release 12hr clindamycin HCl 300 mg PO TID 10/05/20 10/05/20 History insulin glargine [Lantus U-100 0 unit SUBCUT UD 10/05/20 10/05/20 History Insulin] oxycodone-acetaminophen 1 tab PO UD PRN 10/05/20 10/05/20 History Past Med/Surg History Medical History Arthritis Depression Diabetes IDDM GERD (gastroesophageal reflux disease) History of frequent headaches Hx of bronchitis nebs were for this Hyperlipidemia Hypertension Impaired verbal communication pt non verbal Kidney stones On home oxygen therapy 3 lpm continuous PSP (progressive supranuclear palsy) dx 1979' > follows with Dr. Del Angel Stroke pt's daughter denies > just has the PSP Urinary incontinence Wheelchair bound Surgical History H/O: hysterectomy History of appendectomy History of cystoscopy History of tooth extraction Hx of breast biopsy DAUGHTER UNSURE WHICH SIDE S/P percutaneous endoscopic gastrostomy (PEG) tube placement PLACED 6 MOS AGO > FEEDINGS THROUGH THAT> SOME FLUID INTAKE PO> PT DAUGHTER UNSURE FACILITY IT WAS PLACED, THINKS [facility] Family History Mother Diabetes Hypertension Social History Smoking Status: Unknown if ever smoked Second Hand Exposure: No; Hx Alcohol Use: No Hx Substance Use: No Preferred Language: Belarusian Communication Ability: Impaired 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 Beliefs That Will Affect Care: None marital status: Current Living Situation Comment: family current occupational status: retired How many Children do You have: 3 Other Information That Helps Us Care for You: No Feels Safe at Home: Yes Assistive Devices: Oxygen - Continuous Review of Systems Review of Systems: Unobtainable due to cognitive status, Unobtainable due to endotracheal tube and Unobtainable due to reduced consciousness Physical Exam Constitutional: + ill appearing Eyes: + abnormal visual field confrontation L eye with corneal abrasion ENMT: Endotracheal tube in place Respiratory: + abnormal respiratory effort (intubated ) Auscultation: + diminished lung sounds, + crackles and + rales Cardiovascular: Rate/Rhythm: regular rate and regular rhythm Heart Sounds: no murmur Gastrointestinal (Abdomen): Inspection/Auscultation: + abdomen distended and + hypoactive bowel sounds Percussion/Palpation: abdomen soft PEG present on RUQ Neurologic: + not awake Results & Data Results & Data ([facility]) Vital Signs (Past 12 Hours) Vital Signs Temp Pulse Resp BP Pulse Ox 10/06/20 04:00 74 93/51 L 95 10/06/20 03:45 74 95/52 L 94 10/06/20 03:35 93 10/06/20 03:30 75 101/49 L 93 10/06/20 03:15 76 99/51 L 91 10/06/20 03:00 75 100/52 L 92 10/06/20 02:45 76 99/53 L 92 10/06/20 02:30 75 96/51 L 95 10/06/20 02:26 24 10/06/20 02:15 73 104/50 L 91 10/06/20 02:05 92 10/06/20 02:00 72 113/47 L 87 L 10/06/20 01:45 71 109/47 L 93 10/06/20 01:30 71 94/42 L 93 10/06/20 01:15 71 103/45 L 94 10/06/20 01:00 71 108/47 L 95 10/06/20 00:45 72 99/48 L 98 10/06/20 00:39 96 10/06/20 00:37 73 18 98 10/06/20 00:35 73 115/47 L 96 10/06/20 00:00 72 145/56 H 10/05/20 23:45 68 16 133/54 L 98 10/05/20 23:30 68 89/45 L 99 10/05/20 23:15 68 95/46 L 99 10/05/20 23:00 68 94/45 L 98 10/05/20 22:49 67 85/43 L 98 10/05/20 22:45 67 98 10/05/20 22:34 71 16 135/58 L 100 10/05/20 22:30 69 100 10/05/20 22:25 67 94/50 L 100 10/05/20 22:17 105/49 L 100 10/05/20 22:15 72 100 05/29/21 22:10 73 100 10/05/20 22:04 36.7 C 73 26 H 125/57 L 99 10/05/20 22:00 72 31 H 99 10/05/20 21:56 74 33 H 125/57 L 100 Code Status & VTE Plan VTE Prophylaxis Plan VTE Prophylaxis will be ordered: No Critical Care Time Critical Care Time: Yes Total Critical Care Time: 45 Supervising Physician Co-Signing Physician Notes Attending addendum: I have physically seen this patient, have supervised the medical residents activities, and agree with the H&P unless as otherwise noted. Assessment and Plan: Acute respiratory failure with hypoxemia/aspiration pneumonia- Intubated in the ED after ED conversation with family. Further discussion with medicine, patient's family has decided to transition to comfort measures. Patient will be admitted to the ICU due to intubated status at this time, and will then transition to comfort measures when remainder family has arrived. Would not escalate care Continue Versed infusion for sedation while intubated Remaining orders and notations per ICU Resident Activity Tracking Resident Involvement: Resident Care Provided Care Provided: Adult Hospital Medicine
[2020-10-06] MEDS ORDERED: ONDANSETRON INJ 2 MG/ML 2 ML VIAL IV PRN (05:41)
[2020-10-06] MEDS ORDERED: LORazepam 0.5 MG TAB PO PRN (05:41)
[2020-10-06] MEDS ORDERED: ATROPINE SULFATE 1% OP SOLN 5 ML BTL SL PRN (05:41)
[2020-10-06] MEDS ORDERED: MoRPHine SULFATE 2 MG/ML CARP IV PRN (05:41)
[2020-10-06] MEDS ORDERED: STAT IV Infusion **Titration per Protocol STA (05:41)
[2020-10-06] MEDS ORDERED: LORazepam 0.5 MG/1 ML VIAL IV PRN ×2 (05:41→06:56)
[2020-10-06] MEDS ORDERED: ONDANSETRON 4 MG OD TAB SL PRN (05:41)
[2020-10-06] MEDS ORDERED: MoRPHine SULF/SW 240 MG/240 ML BTL IV SCH (05:45)
--- NOTE | 2020-10-06 06:22 | Critical Care Consultation ---
Date of Consultation October 06, 2020 Assessment & Plan (1) Admitted to intensive care unit: Patient is an unfortunate 75-year-old female with a significant past medical history of super nuclear palsy for which she has suffered over the last several years. Apparently, per family, she is declined over the last year with a rapid decline over the last week. She has not eaten or drank. She has a PEG tube in place which was placed 6 months ago to help with feedings. She is bedbound and is unable to communicate orally. She was evaluated in the emergency department where she was found to have likely aspiration pneumonia and UTI with probable urinary retention issues as well. She was subsequently intubated for inability to maintain her airway. Hospital staff did have lengthy conversation with family regarding goals of care. Family wishes to proceed with comfort measures only including compassionate extubation when all family members are able to see their loved one. Decision made to admit the patient to ICU for continued management until this can be completed. I did evaluate the patient at bedside. She is cachectic appearing. She is intubated and sedated. She appears comfortable. I had a lengthy conversation with the patient's and daughter at bedside. They both reiterate that she is declined significantly over the last year with a rapid decline over the past week. I did offer to answer any questions regarding proceeding to extubation with comfort measures only. reports that he is concerned that he feels as though, "I am murdering her." I did discuss the process of terminal extubation as well as proceeding with comfort care medications. I offered him solace in knowing that he is acting as an advocate for his and carried out wishes that they have discussed over the many years of their marriage. I did discuss the process of terminal extubation as well as initiation of morphine drip. I did discuss with them that while she does have some treatable conditions including pneumonia and UTI, the concern is that the patient's deconditioned status does prove complicated in that she will likely become ventilator dependent and there is a very good possibility that she would require tracheostomy and prolonged hospitalization with likely need for LTAC facility placement. I did explain that regardless if the patient were to proceed with aggressive measures, I cannot guaranteed given her current status that she would survive this hospitalization regardless. Additionally, I did provide that if we were to proceed with aggressive measures, she would need to undergo multiple interventions including likely need for central line placement, frequent laboratory draws, prolonged intubation with possible tracheostomy placement, etc. After discussing all treatments that would likely be entailed with her current medical condition and underlying issues, family would not wish to put their loved 1 through a prolonged hospitalization and would wish to proceed with comfort gear care. When I did speak with alone, he became tearful and states that they had just completed their galan. When I asked him if he felt as though she knew she was declining, he reports that he feels as though she was aware of her worsening condition and likely soon demise. I did discuss this with other family members present as well. Plan is for family to get a chance to say goodbye at which point we will compassionately extubate and transition to comfort including morphine drip and Ativan as needed as placed by family assistant. Family is comfortable with this plan. Comfort offered. Patient will likely last several minutes to hours after extubation. Family made aware of this. Comfort cart provided. I have personally spent 32 minutes of critical care time in the direct management of this patient. This is a life/limb threatening event. This includes time spent evaluating patient, direct bedside care, chart review, placing orders, interpretation of diagnostic studies, discussion with consultants, patient, and family members, as well as other required patient management activities. This time is exclusive of all separately billable procedures, and teaching time and separate from and in addition to any other critical care service time. (2) Comfort measures only status: (3) Sepsis: (4) Aspiration pneumonia: (5) Acute renal failure: (6) Acute UTI: History of Present Illness Attending Physician: Rafita Hardin MD History of Present Illness Patient is a 75-year-old female with a significant past medical history of progressive supra nuclear palsy, hyperlipidemia, depression, frequent urinary tract infections, hypercholesterolemia, hypertension, diabetes, and bladder outlet obstruction. Patient has had noticeable decline over the last year and over the last week, the patient has clinically deteriorated as well. She had a PEG tube placed 6 months ago to help with feedings. She has had little p.o. intake for the last 72 hours. She lives with her and daughter who care for her [id number]. They have noticed that she has not urinated in 48 hours or had a bowel movement in 1 week. She had increasing weakness and "gurgling" over the last few days. Apparently, they tried to encourage the patient to come to the hospital 2 days ago, but she adamantly declined. Today, her symptoms worsened and she became tired. She was brought to the emergency department where she was subsequently intubated for inability to protect her airway. She received IV fluids as well as broad-spectrum antibiotics. Initially received courtesy phone call from emergency department physician regarding patient's intubation status. In conversation with family assistant performing admission, family would not wish to proceed with comfort measures only and no escalation of care. Patient will be admitted to the ICU for ventilator management with plans for compassionate extubation when all family are present and accounted for. Upon evaluation in the ICU, the patient is intubated and sedated. She is frail- appearing. Family is at bedside and are comfortable with proceeding with comfort measures including compassionate extubation. Allergies Allergy/AdvReac Type Severity Reaction Status Date / Time Penicillins AdvReac Unknown Unknown Verified 10/05/20 22:34 Home Medications Medication Instructions Recorded Confirmed Type amantadine HCl 100 mg PO BID 12/10/18 10/05/20 History docusate sodium 100 mg PO HS 12/10/18 10/05/20 History famotidine 20 mg PO BID 12/10/18 10/05/20 History glycopyrrolate 2 mg PO BID 12/10/18 10/05/20 History lorazepam [Ativan] 1 mg PO BID 12/10/18 10/05/20 History metoprolol tartrate 50 mg PO HS 12/10/18 10/05/20 History rosuvastatin 20 mg PO PM 12/10/18 10/05/20 History sertraline 200 mg PO QAM 12/10/18 10/05/20 History tizanidine 4 mg PO DIRECTED PRN 12/10/18 10/05/20 History olanzapine 2.5 mg tablet 2.5 mg PO QPM 06/20/20 10/05/20 History pseudoephedrine-guaifenesin ER 60 1 tab PO Q12H PRN 06/20/20 10/05/20 History mg-600 mg tablet,extend release 12hr clindamycin HCl 300 mg PO TID 10/05/20 10/05/20 History insulin glargine [Lantus U-100 0 unit SUBCUT UD 10/05/20 10/05/20 History Insulin] oxycodone-acetaminophen 1 tab PO UD PRN 10/05/20 10/05/20 History Patient History Medical History Arthritis Depression Diabetes IDDM GERD (gastroesophageal reflux disease) History of frequent headaches Hx of bronchitis nebs were for this Hyperlipidemia Hypertension Impaired verbal communication pt non verbal Kidney stones On home oxygen therapy 3 lpm continuous PSP (progressive supranuclear palsy) dx > follows with Dr. Del Angel Stroke pt's daughter denies > just has the PSP Urinary incontinence Wheelchair bound Surgical History H/O: hysterectomy History of appendectomy History of cystoscopy History of tooth extraction Hx of breast biopsy DAUGHTER UNSURE WHICH SIDE S/P percutaneous endoscopic gastrostomy (PEG) tube placement PLACED 6 MOS AGO > FEEDINGS THROUGH THAT> SOME FLUID INTAKE PO> PT DAUGHTER UNSURE FACILITY IT WAS PLACED, THINKS [facility] Family History Mother Diabetes Hypertension Social History Smoking Status: Unknown if ever smoked Second Hand Exposure: No; Hx Alcohol Use: No Hx Substance Use: No Preferred Language: Pashto 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 GENERAL - 75-year-old cachectic appearing female. Intubated and sedated. SKIN - Without rashes. HEAD - NC/AT. MOUTH/OROPHARYNX - Without perioral cyanosis. ET Tube in place. EXTREMITIES - No clubbing or peripheral cyanosis. No pretibial edema present. NEUROLOGIC - Unable to fully assess secondary to sedation, intubation. No focal neurological deficits. Results & Data Results & Data ([facility]) Vital Signs (Past 12 Hours) Vital Signs Temp Pulse Pulse Resp BP BP Pulse Ox 10/06/20 06:07 70 10/06/20 05:10 36.9 C 70 70 21 97/56 L 85 L 10/06/20 05:00 71 24 10/06/20 04:51 71 26 H 97/56 L 10/06/20 04:15 73 87/54 L 95 10/06/20 04:00 74 93/51 L 95 10/06/20 03:45 74 95/52 L 94 10/06/20 03:35 93 10/06/20 03:30 75 101/49 L 93 10/06/20 03:15 76 99/51 L 91 10/06/20 03:00 75 100/52 L 92 10/06/20 02:45 76 99/53 L 92 10/06/20 02:30 75 96/51 L 95 10/06/20 02:26 24 10/06/20 02:15 73 104/50 L 91 10/06/20 02:05 92 10/06/20 02:00 72 113/47 L 87 L 10/06/20 01:45 71 109/47 L 93 10/06/20 01:30 71 94/42 L 93 10/06/20 01:15 71 103/45 L 94 10/06/20 01:00 71 108/47 L 95 10/06/20 00:45 72 99/48 L 98 10/06/20 00:39 96 10/06/20 00:37 73 18 98 10/06/20 00:35 73 115/47 L 96 10/06/20 00:00 72 145/56 H 10/05/20 23:45 68 16 133/54 L 98 10/05/20 23:30 68 89/45 L 99 10/05/20 23:15 68 95/46 L 99 10/05/20 23:00 68 94/45 L 98 10/05/20 22:49 67 85/43 L 98 10/05/20 22:45 67 98 10/05/20 22:34 71 16 135/58 L 100 10/05/20 22:30 69 100 10/05/20 22:25 67 94/50 L 100 10/05/20 22:17 105/49 L 100 05/29/21 22:15 72 100 10/05/20 22:10 73 100 10/05/20 22:04 36.7 C 73 26 H 125/57 L 99 10/05/20 22:00 72 31 H 99 10/05/20 21:56 74 33 H 125/57 L 100 Coding Level of Care Code Critical Care 1st 30-74 mins Diagnoses Admitted to intensive care unit Z78.9 Comfort measures only status Z51.5 Sepsis A41.9; R65.20; J96.01 Acute respiratory failure type: with hypoxia Sepsis acute organ dysfunction status: with acute organ dysfunction Sepsis type: sepsis due to unspecified organism Severe sepsis acute organ dysfunction type: acute respiratory failure Severe sepsis shock status: unspecified Aspiration pneumonia J69.0 Aspiration pneumonia type: unspecified Laterality: bilateral Lung location: lower lobe of lung Acute renal failure N17.9 Acute renal failure type: unspecified Acute UTI N39.0 Time Spent (min) 32 (1) Sepsis Acute respiratory failure type: with hypoxia Sepsis acute organ dysfunction status: with acute organ dysfunction Sepsis type: sepsis due to unspecified organism Severe sepsis acute organ dysfunction type: acute respiratory failure Severe sepsis shock status: unspecified Qualified Code(s): A41.9 - Sepsis, unspecified organism; R65.20 - Severe sepsis without septic shock; J96.01 - Acute respiratory failure with hypoxia (2) Aspiration pneumonia Aspiration pneumonia type: unspecified Laterality: bilateral Lung location: lower lobe of lung Qualified Code(s): J69.0 - Pneumonitis due to inhalation of food and vomit (3) Acute renal failure Acute renal failure type: unspecified Qualified Code(s): N17.9 - Acute kidney failure, unspecified
--- NOTE | 2020-10-06 07:35 | CT Scan Report ---
CT SCAN OF THE CHEST, ABDOMEN, AND PELVIS WITHOUT IV CONTRAST CLINICAL HISTORY: Sepsis. Obtundation. COMPARISON STUDY: Chest x-ray dated 10/05/2020. Chest CT dated 12/11/2018. Pelvic radiograph dated 12/05. TECHNIQUE: Unenhanced CT scan of the chest, abdomen, and pelvis was performed from the thoracic inlet to the proximal femora. Images are reviewed in the axial, sagittal, and coronal planes. IV contrast was not administered for this examination. Note that the examination is performed in significantly salgado boptimal fashion without IV contrast. The examination is compromised by streak artifact from the arms which could not be elevated above the chest or abdomen as well as motion. A dose lowering technique was utilized adhering to the principles of ALARA. CT DOSE: 1151.45 mGy.cm FINDINGS: CHEST: Thyroid: Normal in size and heterogeneous in attenuation. Thoracic aorta: There is atherosclerotic calcification of the thoracic aorta, which is normal in viri sandi and demonstrates standard 3-vessel arch anatomy. Heart: The heart is top normal in size and without pericardial effusion. The coronary arteries and mi tral annulus are densely calcified. Lungs and pleural spaces: An endotracheal tube terminates above the herman. Multifocal airspace conso lidation is seen throughout both lungs, most confluent in the right lower lobe. There are trace pleur al effusions. Intralobular septal thickening suggests fluid overload. No pneumothorax is identified. Calcified granulomas are seen at the right lung base. Debris is noted within the trachea. There is di ffuse peribronchial thickening with fluid/debris in the lower lobe airways. Mediastinum: There are mildly enlarged mediastinal lymph nodes. A precarinal node measures up to 1.1 cm in short axis. Gabriela: Not well assessed without IV contrast. Axillae: There is no axillary lymphadenopathy. Bony thorax: The skeletal structures are osteopenic. Degenerative change is noted in the shoulders an d thoracic spine. There are healed right-sided rib fractures. No lytic or blastic lesions are identif ied. ABDOMEN AND PELVIS: Liver: The unenhanced liver is normal in size, contour, and attenuation. There is mild intrahepatic b iliary ductal dilatation. Periportal edema is suggested. Gallbladder: Surgically absent noting clips in the gallbladder fossa. Spleen: Normal in size and attenuation. Pancreas: The unenhanced pancreas is moderately atrophic and grossly unremarkable. Adrenal glands: Unremarkable. Kidneys: The unenhanced kidneys demonstrate mild cortical atrophy and are without hydronephrosis. The re is fullness of the renal collecting systems bilaterally. There are at least 4 nonobstructing right renal calculi which measure up to 8 mm. No left renal calculi are identified. Foci of cortical scarr ing are seen in the right lower pole. There is no evidence of contour deforming mass lesion. Abdominal vasculature: The abdominal aorta is normal in course and caliber. Stomach and bowel: An enteric tube terminates in the distal stomach. A cutaneous gastrostomy tube is also in place. There is rectosigmoid fecal impaction. The rectum measures 9.8 cm in transverse diamet er. There is associated rectosigmoid wall thickening and surrounding inflammation. Moderate constipat ion is seen throughout the remainder of the colon. There is no small bowel obstruction. The appendix is not visualized. Peritoneum: There is no intraperitoneal free air or abdominal ascites noting advanced atherosclerotic calcification. Lymphadenopathy: None. Pelvic viscera: The bladder is decompressed around a Arnold catheter and cannot be evaluated. Foci of intraluminal gas are nonspecific and may be related to instrumentation. Pericystic inflammation is no nemesio. The uterus is surgically absent. No adnexal lesion is seen. Skeletal structures: The skeletal structures are osteopenic. There are mild compression deformities o f L2, L3, L4, and L5. Mild lumbosacral spondylosis is observed. No lytic or blastic lesions are seen. There are healed right pubic ring fractures. IMPRESSION: 1. Significantly suboptimal examination without IV contrast. There is also streak and motion artifact . 2. Endotracheal and enteric tubes are in place. 3. Multifocal airspace consolidation is typical for pneumonia/aspiration pneumonitis. Clinical correl ation will be required and radiographic follow-up to resolution is recommended. 4. Trace pleural effusions. 5. Fluid/debris is noted within the distal trachea and the lower lobe airways. 6. There is rectosigmoid fecal impaction with associated wall thickening and surrounding inflammation . Correlate clinically for evidence of stercoral proctocolitis. 7. There is moderate constipation throughout the remainder of the colon. No bowel obstruction is iden tified. 8. The bladder is decompressed around a Arnold catheter and there is pericystic inflammation. Correlat e with urinalysis. 9. Right-sided nephrolithiasis. 10. Additional findings as above. ACT 112: Negative or not required by law. Electronically signed by: Agus Sampson M.D. 10/06/2020 7:34 AM
[2020-10-06 08:23] LABS: Toxic Granulation 1+
--- NOTE | 2020-10-06 09:10 | CT Scan Report ---
CT OF THE HEAD WITHOUT CONTRAST CLINICAL HISTORY: sepsis, obtundation COMPARISON STUDY: No previous studies for comparison. TECHNIQUE: Helical axial images of the head were obtained without IV contrast. Automated exposure con trol was utilized for the study. A dose lowering technique was utilized adhering to the principles o f ALARA. FINDINGS: This exam is mildly compromised by motion artifact. No acute intracranial hemorrhage, midli ne shift or mass effect is present. Ventricular system is unremarkable. Basal cisterns are patent. Th ere are no extra-axial collections. White matter hypodensity suggests small vessel disease. There are no findings to suggest acute dural sinus thrombosis or acute territorial infarct. Note is made of se cretions with air-fluid level within the right sphenoid sinus with wall thickening of the sinuses. IMPRESSION: No acute intracranial findings. Exam mildly compromised by motion artifact. ACT 112: Negative or not required by law. Electronically signed by: Jj Falcon M.D. 10/06/2020 9:09 AM
--- NOTE | 2020-10-06 09:27 | XRay Report ---
XR chest 1V portable CLINICAL HISTORY: SEPSIS COMPARISON STUDY: Chest radiograph February 06, 2020. FINDINGS: Tip of endotracheal tube is 3.9 cm above the herman. Tip of nasogastric tube is within the body of the stomach. Gastrostomy tube is noted. Skin folds project over the left chest. There is no p neumothorax. Moderate multifocal right lung airspace opacities are present. There is minimal left bas ilar opacity. IMPRESSION: 1. Satisfactory positioning of the endotracheal and nasogastric tubes. 2. Moderate airspace opacity within the right lung which favors multifocal pneumonia. Asymmetric pulm onary edema could appear similar although is considered less likely. ACT 112: Negative or not required by law. Electronically signed by: Jj Falcon M.D. 10/06/2020 9:26 AM
--- NOTE | 2020-10-06 10:31 | Communication Note ---
Date of Service: October 06, 2020 Called to the bedside by the RN because was upset with the plan of terminal extubation, he felt that more could be done. I asked him what he meant by more. She said that for her impacted stool we should be trying to get the stool out like we did with the dawn and her urine. I explained that there are no procedures except manual disimpaction. Also, I explained that I reviewed her chart, imaging, labs and the medical decision making by admitting doctor and ICU staff. I told him and his family that I completely agree with the recommendation for terminal extubation and comfort measures. To keep the patient alive she would need tracheostomy and would be in an LTACH prison. Explained aspiration pneumonia and that her neurologic condition has declined to the point that she can no longer protect her airway. Despite the alternative route of feeding with PEG she can still aspirate. I summarized saying that her condition is terminal and that being aggressive would be against her previous stated wishes. 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 Her daughter asked about IV fluids for hydration. I explained that with comfort care IV fluids would be considered a life prolonging measure and would advise against it. Examined patient, she is comfortable on 2L NC, morphine drip running at 2mg/hr. She is not responsive. No distress at all. Family in agreement to continue comfort care on morphine drip, I will check on her later today.
--- NOTE | 2020-10-06 10:41 | Electrocardiogram Report ---
Test Reason : Blood Pressure : / mmHG Vent. Rate : 073 BPM Atrial Rate : 072 BPM P-R Int : 000 ms QRS Dur : 114 ms QT Int : 430 ms P-R-T Axes : 000 -64 062 degrees QTc Int : 473 ms Poor data quality, interpretation may be adversely affected Normal sinus rhythm Left anterior fascicular block Right bundle branch block Abnormal ECG When compared with ECG of 10-DEC-2018 22:56, No significant change was found Confirmed by Gómez Matos ([id number]) on 10/06/2020 10:40:43 AM Referred By: REFERRED SELF Confirmed By:Gómez Matos
--- NOTE | 2020-10-06 20:29 | Billing Data ---
Date of Service October 06, 2020 Coding Level of Care Code Critical Care mins
[2020-10-06] MEDS ORDERED: Nursing to Pharmacy Communication SCH (20:30)
--- NOTE | 2020-10-07 12:02 | Palliative Care Consultation ---
Date of Consultation October 07, 2020 Assessment & Plan (1) Palliative care encounter: Currently on comfort measures with morphine infusion. Discussed with RN and order written not to further titrate morphine infusion. Given her renal failure, she is at high risk for morphine toxicity. Given very short prognosis, will monitor on morphine rather than rotate opioid. Would use lorazepam if she is restless. Talked with RN about monitoring for myoclonus. She appears to be within hours to a day of her dying time. Talked with family about what to expect. (2) Acute renal failure: Acute renal failure type: unspecified Qualified Code(s): N17.9 - Acute kidney failure, unspecified (3) Aspiration pneumonia: Aspiration pneumonia type: unspecified Laterality: bilateral Lung location: lower lobe of lung Qualified Code(s): J69.0 - Pneumonitis due to inhalation of food and vomit (4) Sepsis: Acute respiratory failure type: with hypoxia Sepsis acute organ dysfunction status: with acute organ dysfunction Sepsis type: sepsis due to unspecified organism Severe sepsis acute organ dysfunction type: acute respi ratory failure Severe sepsis shock status: unspecified Qualified Code(s): A41.9 - Sepsis, unspecified organism; R65.20 - Severe sepsis without septic shock; J96.01 - Acute respiratory failure with hypoxia (5) Progressive supranuclear palsy: History of Present Illness Reason for Consultation: comfort care Requesting Physician: Dr. Bateman Attending Physician: Kim Mitchell MD History of Present Illness 75 yo lady yo lady who was diagnosed with progressive supranuclear palsy at age 38. She has had progressive recent decline with poor po intake, poor urine output and hypoglycemia with a BG of 46 on admission. She was intubated for airway protection on admission. After family discussion, they decided to proceed with comfort directed care and she was extubated and started on a morphine infusion. The infusion has been titrated to its current rate of 6mg/hr. She has not had any prn dosing of morphine or ativan. She appears comfortable at rest. Family members are at bedside. Allergies Allergy/AdvReac Type Severity Reaction Status Date / Time Penicillins AdvReac Unknown Unknown Verified 10/05/20 22:34 Home Medications Medication Instructions Recorded Confirmed Type amantadine HCl 100 mg PO BID 12/10/18 10/05/20 History docusate sodium 100 mg PO HS 12/10/18 10/05/20 History famotidine 20 mg PO BID 12/10/18 10/05/20 History glycopyrrolate 2 mg PO BID 12/10/18 10/05/20 History lorazepam [Ativan] 1 mg PO BID 12/10/18 10/05/20 History metoprolol tartrate 50 mg PO HS 12/10/18 10/05/20 History rosuvastatin 20 mg PO PM 12/10/18 10/05/20 History sertraline 200 mg PO QAM 12/10/18 10/05/20 History tizanidine 4 mg PO DIRECTED PRN 12/10/18 10/05/20 History olanzapine 2.5 mg tablet 2.5 mg PO QPM 06/20/20 10/05/20 History pseudoephedrine-guaifenesin ER 60 1 tab PO Q12H PRN 06/20/20 10/05/20 History mg-600 mg tablet,extend release 12hr clindamycin HCl 300 mg PO TID 10/05/20 10/05/20 History insulin glargine [Lantus U-100 0 unit SUBCUT UD 10/05/20 10/05/20 History Insulin] oxycodone-acetaminophen 1 tab PO UD PRN 10/05/20 10/05/20 History Patient History Medical History Arthritis Depression Diabetes IDDM GERD (gastroesophageal reflux disease) History of frequent headaches Hx of bronchitis nebs were for this Hyperlipidemia Hypertension Impaired verbal communication pt non verbal Kidney stones On home oxygen therapy 3 lpm continuous PSP (progressive supranuclear palsy) dx > follows with Dr. Del Angel Stroke pt's daughter denies > just has the PSP Urinary incontinence Wheelchair bound Surgical History H/O: hysterectomy History of appendectomy History of cystoscopy History of tooth extraction Hx of breast biopsy DAUGHTER UNSURE WHICH SIDE S/P percutaneous endoscopic gastrostomy (PEG) tube placement PLACED 6 MOS AGO > FEEDINGS THROUGH THAT> SOME FLUID INTAKE PO> PT DAUGHTER UNSURE FACILITY IT WAS PLACED, THINKS [facility] Family History Mother Diabetes Hypertension Social History Smoking Status: Unknown if ever smoked Second Hand Exposure: No; Hx Alcohol Use: No Hx Substance Use: No Preferred Language: Khmer Communication Ability: Impaired Cash Analyst Required: No Beliefs That Will Affect Care: None marital status: Current Living Situation Comment: family current occupational status: retired How many Children do You have: 3 Other Information That Helps Us Care for You: No Feels Safe at Home: Yes Assistive Devices: Oxygen - Continuous Review of Systems Review of Systems: Unobtainable due to reduced consciousness [place] Symptom Assessment Scale PainAD 0/3 Dyspnea by observation 0/3 Palliative Performance Score 10% Physical Exam Constitutional: + cachectic ENMT: Mouth: + dry oral mucous membranes Respiratory: agonal respirations no audible rhonchi Cardiovascular: mottling of hands, feet and knees tachycardia Gastrointestinal (Abdomen): Percussion/Palpation: abdomen soft Musculoskeletal: Extremities: + muscle atrophy Neurologic: + obtunded no myoclonus noted Results & Data ([facility]) Vital Signs (Past 12 Hours) Vital Signs Pulse Resp 10/07/20 09:32 100 H 28 H PG Care Time/CCT Total # of Minutes Spent Total Time Spent with Patient: Total time spent is greater than 50% in coordination of care (as documented) at patient's floor/unit and/or counseling patient: total time spent 60 minutes with more than 50% of time spent on symptom management, medication monitoring, prognosis, family education and support. Coding Level of Care Code 02462 Initial Inpt Care Lvl 3 Diagnoses Palliative care encounter Z51.5 Acute renal failure N17.9 Acute renal failure type: unspecified Aspiration pneumonia J69.0 Aspiration pneumonia type: unspecified Laterality: bilateral Lung location: lower lobe of lung Sepsis A41.9; R65.20; J96.01 Acute respiratory failure type: with hypoxia Sepsis acute organ dysfunction status: with acute organ dysfunction Sepsis type: sepsis due to unspecified organism Severe sepsis acute organ dysfunction type: acute respiratory failure Severe sepsis shock status: unspecified Progressive supranuclear palsy G23.1
--- NOTE | 2020-10-07 14:54 | Hospitalist Progress Note ---
Date of Service October 07, 2020 Assessment & Plan (1) Comfort measures only status: Patient is a complex 75 year old female with PMHx progressive supranuclear palsy (diagnosed at age 38), Depression, HLD, HTN, who presented by EMS due to concerns of continued decline over the past 2 days with decreased PO intake, anuria, constipation, and hypoglycemia BSG 46 when EMS arrived. Also noted to have a UTI, aspiration PNA, and stercoral colitis with fecal impaction. 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 in addition to patient's over all condition -Patient at this time electing not to escalate care and would want to discontinue any medications/procedures outside of making the patient comfortable Pt now obtunded, comfortable, on morphine gtt. Palliative Care consult appreciated -no antibiotics or treatment, labs, etc. -expect pt to pass away likely within the next 1-2 days Condolences given to family and at bedside. (2) Acute renal failure: (3) Acute UTI: (4) Aspiration pneumonia: (5) Diabetes: (6) Hyperlipidemia: (7) Hypertension: (8) Progressive supranuclear palsy: (9) Fecal impaction in rectum: Admission and Anticipated Discharge Date Admission Date: October 06, 2020 Subjective Pt remains obtunded, on morphine gtt. There are approximately 15 family members in the room. They feel their questions were all answered by Dr. Michel of Palliative Care today. Review of Systems Review of Systems: Unobtainable due to reduced consciousness Physical Exam Constitutional: + ill appearing and + lethargic Respiratory: no labored breathing Results & Data Results & Data ([facility]) Vital Signs (Past 12 Hours) Vital Signs Pulse Resp 10/07/20 09:32 100 H 28 H PG Care Time/CCT Total # of Minutes Spent Total Time Spent with Patient: Total time spent is greater than 50% in coordination of care (as documented) at patient's floor/unit and/or counseling patient: Coding Level of Care Code 90733 Subseq Hosp Care Lvl 1 Diagnoses Comfort measures only status Z51.5 Acute renal failure N17.9 Acute renal failure type: unspecified Acute UTI N39.0 Aspiration pneumonia J69.0 Aspiration pneumonia type: unspecified Laterality: bilateral Lung location: lower lobe of lung Diabetes E11.9 Hyperlipidemia E78.5 Hypertension I10 Progressive supranuclear palsy G23.1 Fecal impaction in rectum K56.41 (1) Acute renal failure Acute renal failure type: unspecified Qualified Code(s): N17.9 - Acute kidney failure, unspecified (2) Aspiration pneumonia Aspiration pneumonia type: unspecified Laterality: bilateral Lung location: lower lobe of lung Qualified Code(s): J69.0 - Pneumonitis due to inhalation of food and vomit
[2020-10-08] MEDS: MoRPHine SULF/SW 240 MG/240 ML BTL IV SCH ×2 (00:59→04:09)
--- NOTE | 2020-10-08 05:23 | Death Pronouncement Note ---
Date of Service October 08, 2020 Pronouncement Note Admission Date Admission Date: October 06, 2020 Date and Time of Date of : 10/08/20 Time of : 05:17 Contributing Factors (1) Comfort measures only status: (2) Acute renal failure: (3) Acute UTI: (4) Aspiration pneumonia: (5) Diabetes: (6) Hyperlipidemia: (7) Hypertension: (8) Progressive supranuclear palsy: (9) Fecal impaction in rectum: Hospital Course Hospital Course: Comfort Measures -Patient with continued worsening status per family for almost 1 year now, acutely worsening the past week -Discussed aspiration pneumonia and suspected stercoral proctitis in addition to patient's over all condition -Patient at this time electing not to escalate care and would want to discontinue any medications/procedures outside of making the patient comfortable -They are waiting for a few more family members to come to the hospital to see the patient before planned terminal extubation -Patient was extubated and 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 Presented to the bedside and evaluated patient. Patient with no pulse, respirations, heart sounds, pupils fixed and dilated. Patient confirmed at 05:17 on 10/08/20 Additional Data Confirmation of : no pulse, no respirations, no heart sounds and pupils fixed and dilated Family: at bedside Attending/PCP notified?: No Attending physician: Kim Mitchell MD Was code activated?: No Autopsy requested?: No credit union field examiner notified?: No Organ bank notified?: Yes Advance directives: No Resident Activity Tracking Resident Involvement: Resident Care Provided and Structural Welder Coverage Note Care Provided: Adult Hospital Medicine
[2020-10-08] MEDS ORDERED: MIDAZOLAM HCL 5 MG/ML 1 ML VIAL IV ONE (06:43)
[2020-10-08] MEDS ORDERED: fentaNYL citrate 100 MCG/2 ML VIAL IV ONE (06:43)
[2020-10-08] MEDS ORDERED: ETOMIDATE 2 MG/ML 20 ML VIAL IV ONE (06:43)
[2020-10-08] MEDS ORDERED: ROCURONIUM BROMIDE 10 MG/ML 5 ML VIAL IV ONE (06:43)
--- NOTE | 2020-10-20 21:16 | Discharge Summary ---
Date of Service October 08, 2020 Admission HPI Per Admitting Provider Patient is a complex 75 year old female with PMHx progressive supranuclear palsy (diagnosed at age 38), Depression, HLD, HTN, who presented by EMS due to concerns of continued decline over the past 2 days with decreased PO intake, anuria, constipation, and hypoglycemia BSG 46 when EMS arrived. Patient at baseline is non-verbal, communicating with hand signals, and has been communicating minimally the past few days. History is gathered from family who are present in the room. Family notes that the patient has been having an over all decline the past year, but that it has acutely worsened this past week, especially the past 2 days. Patient had become more minimally responsive than usual and had not urinated in over 2 days. She had also not had a bowel movement in over a week and family has been hearing "gurgling" noises from the patient. She takes very minimally in by PO at baseline (usually coffee) and has strictly been fed via her PEG tube by family. Most recent feeding was 3PM on day of presentation. In the ED there were concerns that the patient was minimally responsive and unable to protect her airway. Discussion was held with the family by the ED provider in regards to patient's end of life wishes and at that time they noted that it had never been discussed and that they agreed to intubation at that time. Upon my evaluation of the patient, patient is intubated and sedated. Discussion was held with family in regards to long-term goals for the patient (~40+ minutes). Family states that as noted above she had been declining for some time now. They felt that this was her time and that they would want to make her as comfortable as possible. They noted that at this point in time they would not want any escalation of care. They also would not want chest compressions or reintubation. They would like a few remaining family members to be able to see the patient before she was ultimately extubated with the expectation of a terminal extubation. Principal Diagnosis Aspiration pneumonia Discharge Exam not seen on date of Discharge Data Allergies Allergy/AdvReac Type Severity Reaction Status Date / Time Penicillins AdvReac Unknown Unknown Verified 10/05/20 22:34 Consultations 10/05/20 23:39 ED Decision to Admit Stat 10/06/20 05:41 Consult Mat Machine Tender Routine Consult Palliative Care Routine Ordered Studies 10/05/20 22:34 CT abd pelvis wo con Urgent CT chest diagnostic wo con Urgent CT head/brain wo con Urgent Hospital Course (1) Comfort measures only status: Patient is a complex 75 year old female with PMHx progressive supranuclear palsy (diagnosed at age 38), Depression, HLD, HTN, who presented by EMS due to concerns of continued decline over the past 2 days with decreased PO intake, anuria, constipation, and hypoglycemia BSG 46 when EMS arrived. Also noted to have a UTI, aspiration PNA, and stercoral colitis with fecal impaction. 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 in addition to patient's over all condition -Patient at this time electing not to escalate care and would want to discontinue any medications/procedures outside of making the patient comfortable pt on comfort measures with multiple family members at her bedside (2) Acute renal failure: (3) Acute UTI: (4) Aspiration pneumonia: (5) Diabetes: (6) Hyperlipidemia: (7) Hypertension: (8) Progressive supranuclear palsy: (9) Fecal impaction in rectum: Total Time Total Time Spent Total Time Spent (In Minutes): 5 min Discharge Plan Discharge Items Patient Disposition: Discharge Diagnosis: Respiratory arrest, Aspiration Pneumonia, Sepsis Addtl Attending Provider Instructions: See note Coding Level of Care Code D/C Day Management <30 mins Diagnoses Comfort measures only status Z51.5 Acute renal failure N17.9 Acute renal failure type: unspecified Acute UTI N39.0 Aspiration pneumonia J69.0 Aspiration pneumonia type: unspecified Laterality: bilateral Lung location: lower lobe of lung Diabetes E11.9 Hyperlipidemia E78.5 Hypertension I10 Progressive supranuclear palsy G23.1 Fecal impaction in rectum K56.41
== END 2020-10-08 06:44 | disposition expired | DRG 951 ==
LOC: ED 21:51 → SUATTDRO 10-06 03:56 → 1E 10-06 03:56 → 3N 10-06 09:31